=== PATIENT | male | born 1995 | race Two or more races ===

== ENCOUNTER 2018-01-01 21:25 | Inpatient (IN) ==
[2018-01-02] MEDS: Heparin Drip 25,000 UNIT/250 ML BAG IV.CONT PRN ×2 (00:15→13:40)
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
[2018-01-02] MEDS: Azithromycin 250 MG Tablet PO SCH (09:25)
--- NOTE | 2018-01-02 10:41 | US ---
EXAM DATE: 01/02/2018 10:33 AM EDT AGE/SEX: 22 years / Male INDICATIONS: Pulmonary embolism. CLINICAL DATA: This is the patient's initial encounter. Patient reports that signs and symptoms have been present for 1 day and indicates a pain score of 0/10. MEDICAL/SURGICAL HISTORY: . Pulmonary embolism. Pleural effusion. None. COMPARISON: No prior exams available for comparison. TECHNIQUE: Venous ultrasound of both lower extremities was performed from the inguinal ligament to t he proximal calf. Real-time, color Doppler and spectral tracing, compression and augmentation techni ques were used. FINDINGS: Right Leg: Normal compression of the deep venous system from the inguinal region to the proximal hardik f. No echogenic clot is seen. Normal response of the venous system to augmentation and respiration. Left Leg: Normal compression of the deep venous system from the inguinal region to the proximal calf . No echogenic clot is seen. Normal response of the venous system to augmentation and respiration. Other: None. CONCLUSION: 1. Negative for deep venous thrombosis Electronically signed by: Chon Holland MD 01/02/2018 10:40 AM EDT
[2018-01-02] MEDS: Acetaminophen 325 MG Tablet PO PRN (16:05)
[2018-01-02 17:44] LABS: Hemoglobin A1c 5.5 % (4.3-6.0)
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
--- NOTE | 2018-01-02 19:44 | ECHRPT ---
Indication: Effusion CONCLUSIONS The left ventricular systolic function is low normal with an estimated ejection fraction in the rang e of 50- 55%. No Regional Wall Motion Abnormality. The estimated pulmonary arterial pressure is 11 mmHg. BP: / HR: Rhythm: MEASUREMENTS (Male / Female) Normal Values Technical Quality:Fair 2D ECHO LV Diastolic Diameter PLAX 4.6 cm 4.2 - 5.9 / 3.9 - 5.3 cm LV Systolic Diameter PLAX 3.6 cm IVS Diastolic Thickness 1.1 cm 0.6 - 1.0 / 0.6 - 0.9 cm LVPW Diastolic Thickness 1.1 cm 0.6 - 1.0 / 0.6 - 0.9 cm LV Relative Wall Thickness 0.5 RV Internal Dim ED PLAX 2.8 cm LVOT Diameter 2.3 cm Aortic Root Diameter 2.8 cm LA Systolic Diameter LX 3.1 cm 3.0 - 4.0 / 2.7 - 3.8 cm DOPPLER AV Peak Velocity 160.0 cm/s AV Peak Gradient 10.2 mmHg LVOT Peak Velocity 116.0 cm/s LVOT Peak Gradient 5.4 mmHg AV Area Cont Eq pk 3.0 cm Mitral E Point Velocity 72.6 cm/s Mitral A Point Velocity 81.4 cm/s Mitral E to A Ratio 0.9 LV E' Lateral Velocity 15.7 cm/s Mitral E to LV E' Lateral Ratio 4.6 LV E' Septal Velocity 6.8 cm/s Mitral E to LV E' Septal Ratio 10.6 TR Peak Velocity 122.0 cm/s TR Peak Gradient 6.0 mmHg Right Atrial Pressure 5.0 mmHg Pulmonary Artery Systolic Pressu 11.0 mmHg Right Ventricular Systolic Press 11.0 mmHg PV Peak Velocity 122.0 cm/s PV Peak Gradient 6.0 mmHg FINDINGS LEFT VENTRICLE Normal left ventricular size. Wall thickness is measured at the upper limits of normal. The left ventricular systolic function is low normal with an estimated ejection fraction in the rang e of 50- 55%. RIGHT VENTRICLE Normal right ventricular size and systolic function. LEFT ATRIUM The left atrial size is normal. RIGHT ATRIUM The right atrial size is normal. ATRIAL SEPTUM Normal atrial septal thickness without atrial level shunting by limited color doppler interrogation. AORTA The aortic root and proximal ascending aorta are normal in size on limited imaging. MITRAL VALVE Structurally normal mitral valve. No mitral valve stenosis or regurgitation. AORTIC VALVE Trileaflet aortic valve. No aortic valve stenosis or regurgitation. TRICUSPID VALVE There is trace tricuspid valve regurgitation. The estimated pulmonary arterial pressure is 11 mmHg. PULMONARY VALVE No pulmonary valve regurgitation or stenosis. VESSELS The inferior vena cava is normal in size. PERICARDIUM No pericardial effusion. Cesar Sarkar MD (Electronically Signed) Final Date:02 January 2018 19:43
[2018-01-02] MEDS: Piperacil/Tazo 4.5 GM Premix 4.5 GM/100 ML BAG IV.SIG SCH (20:04)
[2018-01-02] MEDS: Sodium Bicarbonate 8.4% Inj 75 MEQ in Sod Chloride 0.9% Inj 925 ML IV.CONT SCH (20:13)
[2018-01-02] MEDS: MethylPREDNISolone Sod Succinate Inj 40 MG/ML Vial IV.PUSH SCH (20:42)
--- NOTE | 2018-01-02 22:00 | MB ---
cc: Marie Carson MD DATE: 01/02/2018 REASON FOR CONSULTATION: Pneumonia, peribronchial thickening and possible pulmonary emboli. HISTORY OF PRESENT ILLNESS: This is a 22-year-old male with a history of pain along the right lower chest, cough and shortness of breath as well as trouble lying flat who was brought to the emergency room for evaluation. The patient states that he has been sick for about a week with sweating and some low-grade fevers as well as shortness of breath and chest tightness. Upon arrival in the ER, he had a CT angiogram done of the chest which showed evidence of small bilateral emboli and an ultrasound of the leg veins showed no evidence of DVT. The patient was started on IV heparin. The CTA also showed a consolidation and a small pleural effusion on the right side. He thus has been placed on IV antibiotics including Rocephin IV and Zithromax, which was switched to Zosyn today. The patient has no hemoptysis. He brings up very little mucus. He is not running any fevers this time, but still has pleuritic chest pain. He has no leg or calf muscle pains. PAST MEDICAL HISTORY: Includes a history for low back pain and shoulder pain due to which he has been disabled. He has had no surgery in the past. Denies previous pneumonia. FAMILY HISTORY: History of diabetes in his father. There is a history of heart disease and there is a history for deep venous thrombosis. HABITS: The patient smoked cigarettes, less than a pack, for the last 5 years. Alcohol use, none. Presently, he is disabled due to his back pain. ALLERGIES: NO DRUG ALLERGIES ARE LISTED. REVIEW OF SYSTEMS: The patient has no headaches, but he has some postnasal drip. He has wheezing and chest tightness and pain. He has epigastric distress and some nausea. He has no urinary symptoms. He denies skin lesions. He has some anxiety attacks. PHYSICAL EXAMINATION: GENERAL: This is an obese, young white male who is alert and mildly dyspneic. VITAL SIGNS: Blood pressure 140/80, pulse 100, respirations 24, temperature 97.6. HEENT: Head is normocephalic. Pupils are reactive and equal. Tongue is moist. Throat is mildly injected. Ears, no inflammation. NECK: No bruits, thyroid enlargement or lymphadenopathy. CHEST: Decreased breath sounds over the right lower chest with occasional wheezes bilaterally. HEART: Regular S1 and S2 with no murmur and no S3. ABDOMEN: Soft, obese without masses. No organomegaly or tenderness. Bowel sounds are active. EXTREMITIES: No calf tenderness. No lesions. NEUROLOGIC: Reflexes are 1+ with no gross motor deficits. Cranial nerves grossly intact. SKIN: No lesions observed. IMPRESSION: 1. Right basilar pneumonia with small pleural effusion. 2. Mediastinal and hilar lymphadenopathy, etiology undetermined. 3. Reactive airways disease. 4. Possible pulmonary embolism. CTA chest pending. 5. Possible obstructive sleep apnea. PLAN: The patient has been started on heparin, which we will continue. Antibiotic therapy including Zosyn is 4.5 grams IV q.8 hours and Zithromax 500 mg p.o. daily will be continued. Nebulized DuoNeb solution added q.i.d. A bedside pulmonary function study will be done and a repeat chest x-ray. The patient will be placed on O2 at 2 liters p.r.n. to keep saturations greater than 92. Solu-Medrol 40 mg IV b.i.d. will be added. An ultrasound examination of the chest to evaluate the effusion and a CBC and a CMP as well. I follow the case with you, Dr. Jefferson. Thank you for this consultation. V. Ryland Carson MD VJD/kerrie , 08:09 PM , 08:22 PM
--- NOTE | 2018-01-03 | CT ---
EXAM DATE: 01/02/2018 11:47 PM EDT AGE/SEX: 22 years / Male INDICATIONS: Suspected embolism. CLINICAL DATA: This is the patient's subsequent encounter. Patient reports that signs and symptoms h ave been present for 2 days and indicates a pain score of 3/10. MEDICAL/SURGICAL HISTORY: None. None. RADIATION DOSE: 21.84 CTDI (mGy) COMPARISON: [facility], CTA PULMONARY W CONTRAST W 3D, 01/01/2018. . TECHNIQUE: Volumetric scanning was performed using a multi-row detector CT scanner during bolus infu isrrael of 100 ml Omnipaque 350 (iohexol) nonionic water-soluble contrast as a single exam dose. The da ta was post processed with a variety of visualization algorithms including full volume maximum intens ity projection and sliding thin slab reformation. Using automated exposure control and adjustment of the mA and/or kV according to patient size, radiation dose was kept as low as reasonably achievable to obtain optimal diagnostic quality images. DICOM format image data is available electronically for review and comparison. FINDINGS: No perceptible pulmonary embolus at this time. Persistent right lower lobe consolidation and small ef fusion again noted. Mild left base atelectasis not significantly changed. Mildly enlarged right hilar and mediastinal/subcarinal lymph nodes are unchanged. Heart size stable, within normal limits. CONCLUSION: 1. No reproducible pulmonary emboli. 2. Persistent left lower lobe consolidation and small left pleural effusion. 3. Mild right base atelectasis not significantly changed. 4. Mildly enlarged mediastinal and right hilar lymph nodes not significantly changed. Electronically signed by: Brock Rossi MD 01/02/2018 11:59 PM EDT
[2018-01-03 01:24] LABS: Mono Screen Neg (Neg)
[2018-01-03] MEDS: Heparin Drip 25,000 UNIT/250 ML BAG IV.CONT PRN ×2 (02:53→14:20)
[2018-01-03] MEDS: Piperacil/Tazo 4.5 GM Premix 4.5 GM/100 ML BAG IV.SIG SCH ×3 (05:17→21:54)
[2018-01-03] MEDS: Sodium Bicarbonate 8.4% Inj 75 MEQ in Sod Chloride 0.9% Inj 925 ML IV.CONT SCH ×3 (05:18→21:43)
[2018-01-03 07:22] LABS: Baso % (Auto) 0.2 % (0.0-2.0); Eos % (Auto) 0.1 % (0.0-4.0); Hematocrit 37.1 % (39.0-51.0); Hemoglobin 12.5 gm/dL (13.0-17.0); Lymph # (Auto) 1.1 th/mm3 (1.0-4.8); Lymph % (Auto) 9.4 % (9.0-44.0); Mean Corpuscular HGB Conc 33.6 % (32.0-36.0); Mean Corpuscular Hemoglobin 28.4 pg (27.0-34.0); Mean Corpuscular Volume 84.3 fL (80.0-100.0); Mean Platelet Volume 8.6 fL (7.0-11.0); Mono # (Auto) 0.7 th/mm3 (0.0-0.9); Mono % (Auto) 6.1 % (0.0-8.0); Neut # (Auto) 9.7 th/mm3 (1.8-7.7); Neut % (Auto) 84.2 % (16.0-70.0); Platelet Count 325 th/mm3 (150-450); White Blood Count 11.5 th/mm3 (4.0-11.0)
[2018-01-03 07:31] LABS: Chloride 103 meq/L (98-107); Potassium 3.8 meq/L (3.5-5.1); Sodium 137 meq/L (136-145)
[2018-01-03 07:34] LABS: Calcium 8.4 mg/dL (8.5-10.1)
[2018-01-03 07:35] LABS: Albumin 2.8 g/dL (3.4-5.0); Anion Gap 6 meq/L (5-15); Blood Urea Nitrogen 8 mg/dL (7-18); Carbon Dioxide 27.7 meq/L (21.0-32.0); Glucose,Random 143 mg/dL (74-106)
[2018-01-03 07:38] LABS: Alanine Aminotransferase 46 U/L (12-78); Aspartate Aminotransferase 17 U/L (15-37); Glomerular Filtration Rate Greater Than 89 mL/min (>89)
[2018-01-03 07:40] LABS: Total Protein 7.6 g/dL (6.4-8.2)
[2018-01-03 07:41] LABS: Alkaline Phosphatase 101 U/L (45-117)
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
[2018-01-03] MEDS: Azithromycin 250 MG Tablet PO SCH (08:46)
[2018-01-03] MEDS: MethylPREDNISolone Sod Succinate Inj 40 MG/ML Vial IV.PUSH SCH ×2 (08:47→21:54)
--- NOTE | 2018-01-03 08:48 | XR ---
EXAM DATE: 01/03/2018 8:39 AM EDT AGE/SEX: 22 years / Male INDICATIONS: Infiltrate, short of breath. CLINICAL DATA: This is the patient's subsequent encounter. Patient reports that signs and symptoms h ave been present for 3 days and indicates a pain score of 3/10. MEDICAL/SURGICAL HISTORY: None. None. COMPARISON: [facility], CHEST 1V SINGLE AP, 01/01/2018. . FINDINGS: A single AP view of the chest demonstrates right basilar density and pleural effusion. Heart normal i n size. Minimal left basilar atelectasis. The cardiomediastinal contours are unremarkable. Osseous s tructures are intact. CONCLUSION: Moderate right-sided pleural effusion and right basilar density likely pneumonia. Electronically signed by: Horace Bettencourt MD 01/03/2018 8:47 AM EDT
[2018-01-03 12:02] LABS: INR 1.1 Ratio; Prothrombin Time 10.9 sec (9.8-11.6)
--- NOTE | 2018-01-03 19:16 | P.PNONC ---
Subjective Interval history: "I feel better this morning after everything they did yesterday" Still has pain in the right side. Denies any bleeding. Objective Vital Signs/Intake & Output: Vital Signs 01/02/18 19:30 01/02/18 20:00 01/02/18 20:18 Temperature 99.3 F Pulse Rate 116 H 122 H 120 H Respiratory Rate 16 18 Blood Pressure 139/88 Pulse Oximetry 93 L 94 L 01/02/18 20:37 01/02/18 20:38 01/03/18 00:00 Temperature 99.3 F 97.5 F L Pulse Rate 122 H 104 H Respiratory Rate 20 18 Blood Pressure 134/68 131/63 Pulse Oximetry 94 L 94 L 93 L 01/03/18 00:15 01/03/18 04:00 01/03/18 05:53 Temperature 96.5 F L Pulse Rate 111 H 93 H 76 Respiratory Rate 18 Blood Pressure 122/69 Pulse Oximetry 94 L 01/03/18 07:32 01/03/18 08:00 01/03/18 12:00 Temperature 97.5 F L 97.7 F Pulse Rate 87 102 H 103 H Respiratory Rate 16 Blood Pressure 140/71 132/72 Pulse Oximetry 92 L 01/03/18 14:57 01/03/18 16:00 01/03/18 17:10 Temperature 97.8 F Pulse Rate 100 H 113 H 119 H Respiratory Rate 18 18 Blood Pressure 138/60 Pulse Oximetry 92 L Intake & Output 01/03/18 01/03/18 01/04/18 06:59 18:59 06:59 Intake Total 1350 / 1350 2415 / 2415 Output Total 1600 / 1600 Balance -250 / -250 2415 / 2415 Weight 125.7 kg Intake: IV 1350 / 1350 1415 / 1415 Heparin/D5W 25,000 U/250 mL 25, 250 / 250 215 / 215 000 unit In 250 ml @ Per Protocol IV.CONT TITRATE PRN Rx #:[id number] Sodium Bicarbonate 8.4% Inj 75 1000 / 1000 1000 / 1000 MEQ In NS Inj 925 ML @ 125 mls/ hr IV.CONT .Q8H KATI Rx#: [id number] Zosyn 4.5 GM Premix 4.5 gm In 100 / 100 200 / 200 100 ml @ 200 mls/hr IV.SIG Q8H KATI Rx#:[id number] Oral 1000 / 1000 Output: Urine 1600 / 1600 Other: # Voids 4 Date of Last Bowel Movement 12/31/17 Result Diagrams: 01/03/18 07:00 01/03/18 07:00 Laboratory Results: Laboratory Results - last 24 hr 01/02/18 01/02/18 01/03/18 05:15 20:00 00:30 CBC w Diff WBC RBC Hgb Hct MCV MCH MCHC RDW Plt Count MPV Neut % (Auto) Lymph % (Auto) [place] % (Auto) Eos % (Auto) Baso % (Auto) Neut # (Auto) Lymph # (Auto) [place] # (Auto) Eos # (Auto) Baso # (Auto) WBC Differential Differential Comment PT INR APTT 37.8 H Sodium Potassium Chloride Carbon Dioxide Anion Gap BUN Creatinine Estimated GFR Random Glucose Hemoglobin A1c 5.5 Calcium Total Bilirubin AST ALT Alkaline Phosphatase Total Protein Albumin Monoscreen Neg 01/03/18 01/03/18 01/03/18 07:00 07:00 07:00 CBC w Diff Auto diff final WBC 11.5 H RBC 4.40 L Hgb 12.5 L Hct 37.1 L MCV 84.3 MCH 28.4 MCHC 33.6 RDW 13.0 Plt Count 325 MPV 8.6 Neut % (Auto) 84.2 H Lymph % (Auto) 9.4 [place] % (Auto) 6.1 Eos % (Auto) 0.1 Baso % (Auto) 0.2 Neut # (Auto) 9.7 H Lymph # (Auto) 1.1 [place] # (Auto) 0.7 Eos # (Auto) 0.0 Baso # (Auto) 0.0 WBC Differential . Differential Comment . PT INR APTT 37.8 H Sodium 137 Potassium 3.8 Chloride 103 Carbon Dioxide 27.7 Anion Gap 6 BUN 8 Creatinine 0.85 Estimated GFR Greater than 89 Random Glucose 143 H Hemoglobin A1c Calcium 8.4 L Total Bilirubin 0.5 AST 17 ALT 46 Alkaline Phosphatase 101 Total Protein 7.6 Albumin 2.8 L D Monoscreen 01/03/18 01/03/18 07:10 16:40 CBC w Diff WBC RBC Hgb Hct MCV MCH MCHC RDW Plt Count MPV Neut % (Auto) Lymph % (Auto) [place] % (Auto) Eos % (Auto) Baso % (Auto) Neut # (Auto) Lymph # (Auto) [place] # (Auto) Eos # (Auto) Baso # (Auto) WBC Differential Differential Comment PT 10.9 INR 1.1 APTT 36.9 H Sodium Potassium Chloride Carbon Dioxide Anion Gap BUN Creatinine Estimated GFR Random Glucose Hemoglobin A1c Calcium Total Bilirubin AST ALT Alkaline Phosphatase Total Protein Albumin Monoscreen Imaging Studies: Impressions Chest CTA 01/02/18 00:00 CONCLUSION: 1. No reproducible pulmonary emboli. 2. Persistent left lower lobe consolidation and small left pleural effusion. 3. Mild right base atelectasis not significantly changed. 4. Mildly enlarged mediastinal and right hilar lymph nodes not significantly changed. Chest X-Ray 01/03/18 00:00 CONCLUSION: Moderate right-sided pleural effusion and right basilar density likely pneumonia. Medications: Active Medications Generic Name Dose Route Start Last Admin Trade Name Freq PRN Reason Stop Dose Admin Acetaminophen 650 mg 01/02/18 03:23 01/02/18 16:05 Tylenol PO 650 mg Q4H PRN Administration Temp > 100.4 Hydrocodone Bitart/Acetaminophen 1 tab 01/02/18 03:26 01/02/18 20:34 [place] 5/325 PO 1 tab Q4H PRN Administration pain 1 to 10 Albuterol 1 ampul 01/02/18 09:05 01/02/18 09:20 Duoneb Neb (Prn) NEB 1 ampul Q2HR NEB PRN Administration SHORTNESS OF BREATH/WHEEZING Albuterol 1 ampul 01/02/18 14:00 01/03/18 14:57 Duoneb Neb (Kati) NEB 1 ampul Q6HR WHILE AWAKE NEB KATI Administration Azithromycin 500 mg 01/02/18 10:00 01/03/18 08:46 Zithromax PO 500 mg DAILY KATI Administration Heparin Sodium/Dextrose 25,000 unit in 250 mls @ 0 mls/hr 01/02/18 03:27 14:20 Heparin/D5w 25,000 U/250 Ml IV.CONT 2,100 units/hr TITRATE PRN 21 mls/hr Per Protocol Administration Protocol Per Protocol Piperacillin/Tazobactam/Dextrose 4.5 gm in 100 mls @ 200 mls/hr 01/02/18 20: 00 01/03/18 13:10 Zosyn 4.5 Gm Premix IV.SIG Infused Q8H KATI Infusion Sodium Bicarbonate 75 meq/ 1,000 mls @ 125 mls/hr 01/02/18 20:00 01/03/18 12: 38 Sodium Chloride IV.CONT 125 mls/hr .Q8H KATI Administration Methylprednisolone Sodium Succinate 40 mg 01/02/18 21:00 01/03/18 08:47 Solumedrol Inj IV.PUSH 40 mg Q12HR KATI Administration Objective Remarks: GENERAL: Well-nourished, heavyset, well-developed patient. SKIN: Warm and dry. HEAD: Normocephalic. EYES: No scleral icterus. No injection or drainage. NECK: Supple, trachea midline. No JVD or lymphadenopathy. LYMPHATIC: No adenopathy. CARDIOVASCULAR: Regular rate and rhythm without murmurs. RESPIRATORY: Decreased breath sounds in the right base. GASTROINTESTINAL: Abdomen soft, non-tender, nondistended. EXTREMITIES: No cyanosis, or edema. MUSCULOSKELETAL: Adequate muscle tone. NEUROLOGICAL: No obvious focal deficit. Awake, alert, and oriented x3. PSYCHIATRIC: Appropriate mood and affect; insight and judgment normal. Assessment/Plan (1) Pulmonary embolism Code(s): I26.99 - Other pulmonary embolism without acute cor pulmonale Status : Acute - Plan 22-year-old man on disability with chronic pains. He came home from a wedding 2 weeks ago and developed illness that kept him in bed, quite sedentary from the illness. He developed pleuritic-like chest pain which is worsened over the last 2 days that brought him into the emergency room and [place]. CT angiogram from 01/01/18 shows bilateral small pulmonary emboli. Review with the radiology confirmed the presence of the bilateral small pulmonary emboli. Noted that the CT angiogram repeat on 01/01/18 was negative which unfortunately does not negate the presence of the pulmonary embolism found from the CT angiogram 01/01/18. His clinical presentation is consistent with pulmonary embolism. Clinically he improved with a combination therapy of antibiotics and anticoagulant. He has significant family history of venous and arterial thrombotic event. His mother apparently is on Coumadin with an idiopathic clot to the liver. His father has recurrent arterial embolic event and has multiple stents placed. He has maternal history significant for other uncles with thrombotic events and on chronic anticoagulant therapy. The patient has no prior history of venous thromboembolic event. Bilateral pulmonary embolism provoked. Recommend continued anticoagulant therapy with unfractionated heparin during his hospitalization. Unfractionated heparin will be stopped prior to his thoracentesis for the empyema. We discussed continued anticoagulant therapy as definitive treatment for his bilateral pulmonary embolism with the new oral anticoagulant when he is ready to go home. infrastructure project manager will be consulted for Eliquis or Xarelto to continue after discharge. He is young, normal renal function, with no prior history of bleeding diathesis. We discussed thrombophilia evaluation. We will defer that at present as it is unlikely to change clinical management. We discussed the risk and benefit of anticoagulant therapy with patient and his mother at bedside. They were in agreement with continue anticoagulation in light of his significant family history and his acute symptoms which got better with unfractionated heparin last 24 hours. We will monitor closely for bleeding. Case was discussed with nursing program director. (1) Pulmonary embolism Qualifiers: Chronicity: acute Acute cor pulmonale presence: without acute cor pulmonale
--- NOTE | 2018-01-03 19:36 | P.PN ---
Subjective Interval history: Has some Right chest pains. On Heparin due to PE Now has a Larger Right effusion Physical Exam Vital signs: Vital Signs 01/02/18 20:00 01/02/18 20:18 01/02/18 20:37 Temperature 99.3 F 99.3 F Pulse Rate 122 H 120 H 122 H Respiratory Rate 18 20 Blood Pressure 139/88 134/68 Pulse Oximetry 94 L 94 L 01/02/18 20:38 01/03/18 00:00 01/03/18 00:15 Temperature 97.5 F L Pulse Rate 104 H 111 H Respiratory Rate 18 Blood Pressure 131/63 Pulse Oximetry 94 L 93 L 01/03/18 04:00 01/03/18 05:53 01/03/18 07:32 Temperature 96.5 F L Pulse Rate 93 H 76 87 Respiratory Rate 18 16 Blood Pressure 122/69 Pulse Oximetry 94 L 92 L 01/03/18 08:00 01/03/18 12:00 01/03/18 14:57 Temperature 97.5 F L 97.7 F Pulse Rate 102 H 103 H 100 H Respiratory Rate 18 Blood Pressure 140/71 132/72 Pulse Oximetry 01/03/18 16:00 01/03/18 17:10 Temperature 97.8 F Pulse Rate 113 H 119 H Respiratory Rate 18 Blood Pressure 138/60 Pulse Oximetry 92 L Intake & Output 01/03/18 01/03/18 01/04/18 06:59 18:59 06:59 Intake Total 1350 / 1350 2415 / 2415 82 / 82 Output Total 1600 / 1600 Balance -250 / -250 2415 / 2415 82 / 82 Weight 125.7 kg Intake: IV 1350 / 1350 1415 / 1415 82 / 82 Heparin/D5W 25,000 U/250 mL 25, 250 / 250 215 / 215 82 / 82 000 unit In 250 ml @ Per Protocol IV.CONT TITRATE PRN Rx #:[id number] Sodium Bicarbonate 8.4% Inj 75 1000 / 1000 1000 / 1000 MEQ In NS Inj 925 ML @ 125 mls/ hr IV.CONT .Q8H GLENDA Rx#: [id number] Zosyn 4.5 GM Premix 4.5 gm In 100 / 100 200 / 200 100 ml @ 200 mls/hr IV.SIG Q8H GLENDA Rx#:[id number] Oral 1000 / 1000 Output: Urine 1600 / 1600 Other: # Voids 4 Date of Last Bowel Movement 12/31/17 Narrative: GENERAL: Well-developed, well-nourished, heavy set male patient lying in bed in no acute distress. alert and orientated. No shortness of breath. On 2 L nasal cannula. HEENT: Head is normocephalic without any lesions or masses noted. Facial features are symmetric. Eyes: Pupils equal round reactive to light. Extraocular muscles are intact. Conjunctivae were clear. Oropharyngeal: Pharynx without any erythema edema. Tongue is midline without deviation. Buccal mucosa is moist without any masses or lesions NECK: Supple without any masses. Trachea midline no deviation. No JVD, no bruits are appreciated CARDIAC: Regular rhythm, regular rate. S1/S2 are heard. No murmurs gallops or rubs. LUNGS: No wheeze, rhonchi or rales.Decreased breath sounds at right base. No use of accessory muscles on inspiration or expiration. ABDOMEN: Soft, nontender. Nondistended. Bowel sounds heard in all 4 quadrants. No organomegaly or masses. Negative rebound, negative guarding EXTREMITIES: No edema, pulses are equal bilaterally. No cyanosis or clubbing NEUROLOGY: Mood and affect appear appropriate. Cranial nerves II through XII grossly intact. Muscle strength 5/5 in upper and lower extremities bilaterally. Results - Labs CBC & Chem 7: 01/03/18 07:00 01/03/18 07:00 Laboratory Results - last 24 hr 01/02/18 01/03/18 01/03/18 20:00 00:30 07:00 CBC w Diff Auto diff final WBC 11.5 H RBC 4.40 L Hgb 12.5 L Hct 37.1 L MCV 84.3 MCH 28.4 MCHC 33.6 RDW 13.0 Plt Count 325 MPV 8.6 Neut % (Auto) 84.2 H Lymph % (Auto) 9.4 [place] % (Auto) 6.1 Eos % (Auto) 0.1 Baso % (Auto) 0.2 Neut # (Auto) 9.7 H Lymph # (Auto) 1.1 [place] # (Auto) 0.7 Eos # (Auto) 0.0 Baso # (Auto) 0.0 WBC Differential . Differential Comment . PT INR APTT 37.8 H Sodium Potassium Chloride Carbon Dioxide Anion Gap BUN Creatinine Estimated GFR Random Glucose Calcium Total Bilirubin AST ALT Alkaline Phosphatase Total Protein Albumin Monoscreen Neg 01/03/18 01/03/18 01/03/18 07:00 07:00 07:10 CBC w Diff WBC RBC Hgb Hct MCV MCH MCHC RDW Plt Count MPV Neut % (Auto) Lymph % (Auto) [place] % (Auto) Eos % (Auto) Baso % (Auto) Neut # (Auto) Lymph # (Auto) [place] # (Auto) Eos # (Auto) Baso # (Auto) WBC Differential Differential Comment PT 10.9 INR 1.1 APTT 37.8 H Sodium 137 Potassium 3.8 Chloride 103 Carbon Dioxide 27.7 Anion Gap 6 BUN 8 Creatinine 0.85 Estimated GFR Greater than 89 Random Glucose 143 H Calcium 8.4 L Total Bilirubin 0.5 AST 17 ALT 46 Alkaline Phosphatase 101 Total Protein 7.6 Albumin 2.8 L D Monoscreen 01/03/18 16:40 CBC w Diff WBC RBC Hgb Hct MCV MCH MCHC RDW Plt Count MPV Neut % (Auto) Lymph % (Auto) [place] % (Auto) Eos % (Auto) Baso % (Auto) Neut # (Auto) Lymph # (Auto) [place] # (Auto) Eos # (Auto) Baso # (Auto) WBC Differential Differential Comment PT INR APTT 36.9 H Sodium Potassium Chloride Carbon Dioxide Anion Gap BUN Creatinine Estimated GFR Random Glucose Calcium Total Bilirubin AST ALT Alkaline Phosphatase Total Protein Albumin Monoscreen - Imaging Impressions Chest CTA 01/02/18 00:00 CONCLUSION: 1. No reproducible pulmonary emboli. 2. Persistent left lower lobe consolidation and small left pleural effusion. 3. Mild right base atelectasis not significantly changed. 4. Mildly enlarged mediastinal and right hilar lymph nodes not significantly changed. Chest X-Ray 01/03/18 00:00 CONCLUSION: Moderate right-sided pleural effusion and right basilar density likely pneumonia. Assessment and Plan - Assessment (1) Pneumonia Code(s): J18.9 - Pneumonia, unspecified organism Status: Acute (2) Pleural effusion associated with pulmonary infection Code(s): J18.9 - Pneumonia, unspecified organism; J91.8 - Pleural effusion in other conditions classified elsewhere Status: Acute (3) Atelectasis Code(s): J98.11 - Atelectasis Status: Acute (4) Pulmonary embolism Code(s): I26.99 - Other pulmonary embolism without acute cor pulmonale Status : Acute - Plan 1. Continue Antibiotics Zosyn/ Zithromax 2. O2 2 L N/C 3. Thoracentesis right chest and Chest tube to Drain 4. Nebs qid , duoneb 5. PFT with Bronchodilator 6. IS at Bedside Q2H 7. CBC,BMP CXR in am 8. Continue heparin drip per heme (4) Pulmonary embolism Qualifiers: Chronicity: acute Acute cor pulmonale presence: without acute cor pulmonale
[2018-01-04] MEDS: Heparin Drip 25,000 UNIT/250 ML BAG IV.CONT PRN (02:04)
[2018-01-04] MEDS: Sodium Bicarbonate 8.4% Inj 75 MEQ in Sod Chloride 0.9% Inj 925 ML IV.CONT SCH ×3 (05:39→22:08)
[2018-01-04] MEDS: Piperacil/Tazo 4.5 GM Premix 4.5 GM/100 ML BAG IV.SIG SCH ×3 (05:46→21:30)
[2018-01-04] MEDS: Azithromycin 250 MG Tablet PO SCH (08:01)
[2018-01-04] MEDS: MethylPREDNISolone Sod Succinate Inj 40 MG/ML Vial IV.PUSH SCH ×2 (08:01→20:16)
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
[2018-01-04] MEDS ORDERED: fentaNYL Citrate Inj 100 MCG/2 ML Ampul IV.PUSH ONE (14:20)
--- NOTE | 2018-01-04 14:37 | P.RAD ---
Post Procedure Progress Note - Pre Procedure Diagnosis (1) Pleural effusion associated with pulmonary infection - Post Procedure Diagnosis (1) Pleural effusion associated with pulmonary infection - Procedure Information Procedure Date: 01/04/18 Supervising Radiologist: Serafin Holland MD Estimated blood loss (mL): 0 - Plan of Activity Patient to Unit: PACU Patient Condition: Good Additional Comments: Patient evaluated prior to chest tube placement. The right pleural effusion has nearly completely resolved. Much improved compared to prior CT. No chest tube placed due to lack of sufficient fluid. Continued pulmonary infiltrate and atelectasis. Full report to follow. See PACS Report for procedural detail/treatment.
--- NOTE | 2018-01-04 14:46 | CT ---
EXAM DATE: 01/04/2018 2:40 PM EDT AGE/SEX: 22 years / Male INDICATIONS: Right chest fluid collection. COMPARISON: [facility], CTA PULMONARY W CONTRAST W 3D, 01/02/2018. . FINDINGS: The patient arrived for placement of a chest tube for drainage of empyema. The patient was placed on the CT scanner prior to chest tube placement. The examination demonstrated significant interval improvement in the appearance of the effusion with very minimal residual fluid r emaining. There is extensive atelectatic change and infiltrate within the right lung. CONCLUSION: 1. The patient's effusion has significantly improved compared to the prior study of 01/02/2018. Ther e is now only a small amount of fluid which remains. As such, no chest tube was placed. 2. There is still extensive consolidation and atelectasis within the right lung. Electronically signed by: Serafin Holland MD 01/04/2018 2:45 PM EDT
[2018-01-04 16:19] LABS: Hematocrit 37.3 % (39.0-51.0); Hemoglobin 12.4 gm/dL (13.0-17.0); Mean Corpuscular HGB Conc 33.4 % (32.0-36.0); Mean Corpuscular Hemoglobin 29.1 pg (27.0-34.0); Mean Platelet Volume 8.3 fL (7.0-11.0); Platelet Count 371 th/mm3 (150-450); Red Blood Count 4.29 mil/mm3 (4.50-5.90); Red Cell Distribution Width 13.6 % (11.6-17.2); White Blood Count 14.5 th/mm3 (4.0-11.0)
--- NOTE | 2018-01-04 18:36 | P.PN ---
Subjective Interval history: States he is better.Less pain in chest On O2 2 L. No Fever. Pleural effusion has resolved. Physical Exam Vital signs: Vital Signs 01/03/18 19:22 01/03/18 20:00 01/03/18 20:30 Temperature 97.1 F L 97.1 F L Pulse Rate 109 H 118 H 118 H Respiratory Rate 16 20 18 Blood Pressure 129/60 129/60 Pulse Oximetry 92 L 91 L 92 L 01/04/18 00:00 01/04/18 04:00 01/04/18 04:48 Temperature 97.8 F 96.1 F L Pulse Rate 104 H 102 H 98 H Respiratory Rate 20 20 Blood Pressure 127/67 124/68 Pulse Oximetry 94 L 95 01/04/18 07:13 01/04/18 08:00 01/04/18 12:00 Temperature 96.8 F L 96.8 F L Pulse Rate 70 70 66 Respiratory Rate 16 21 18 Blood Pressure 129/74 132/75 Pulse Oximetry 96 98 97 01/04/18 14:40 01/04/18 14:55 01/04/18 15:10 Temperature 97.9 F 97.9 F 97.9 F Pulse Rate 81 80 66 Respiratory Rate 15 16 16 Blood Pressure 123/81 126/78 122/68 Pulse Oximetry 92 L 94 L 95 01/04/18 16:00 Temperature 96.9 F L Pulse Rate 73 Respiratory Rate 18 Blood Pressure 119/69 Pulse Oximetry 96 Intake & Output 01/03/18 01/04/18 01/04/18 18:59 06:59 18:59 Intake Total 2415 / 2415 2532 / 2532 1050 / 1050 Balance 2415 / 2415 2532 / 2532 1050 / 1050 Weight 127.8 kg Intake: IV 1415 / 1415 2532 / 2532 1050 / 1050 Heparin/D5W 25,000 U/250 mL 25, 215 / 215 332 / 332 000 unit In 250 ml @ Per Protocol IV.CONT TITRATE PRN Rx #:[id number] Sodium Bicarbonate 8.4% Inj 75 1000 / 1000 2000 / 2000 950 / 950 MEQ In NS Inj 925 ML @ 125 mls/ hr IV.CONT .Q8H GLENDA Rx#: [id number] Zosyn 4.5 GM Premix 4.5 gm In 200 / 200 200 / 200 100 / 100 100 ml @ 200 mls/hr IV.SIG Q8H GLENDA Rx#:[id number] Oral 1000 / 1000 Other: # Voids 4 1 Date of Last Bowel Movement 01/04/18 01/04/18 # Bowel Movements 1 Narrative: GENERAL: Well-developed, well-nourished, heavy set male patient lying in bed in no acute distress. alert and orientated. HEENT: Head is normocephalic without any lesions or masses noted. Facial features are symmetric. Eyes: Pupils equal round reactive to light. Extraocular muscles are intact. Conjunctivae were clear. Oropharyngeal: Pharynx without any erythema edema. Tongue is midline without deviation. Buccal mucosa is moist without any masses or lesions NECK: Supple without any masses. Trachea midline no deviation. No JVD, no bruits are appreciated CARDIAC: Regular rhythm, regular rate. S1/S2 are heard. No murmurs gallops or rubs. LUNGS: .Decreased breath sounds at right base. No use of accessory muscles on inspiration or expiration. ABDOMEN: Soft, nontender. Nondistended. Bowel sounds heard in all 4 quadrants. No organomegaly or masses. Negative rebound, negative guarding EXTREMITIES: No edema, pulses are equal bilaterally. No cyanosis or clubbing NEUROLOGY: Mood and affect appear appropriate. Cranial nerves II through XII grossly intact. Muscle strength 5/5 in upper and lower extremities bilaterally. Results - Labs CBC & Chem 7: 01/04/18 15:58 01/03/18 07:00 Laboratory Results - last 24 hr 01/04/18 01/04/18 01/04/18 00:05 15:58 15:58 WBC 14.5 H RBC 4.29 L Hgb 12.4 L Hct 37.3 L MCV 87.0 MCH 29.1 MCHC 33.4 RDW 13.6 Plt Count 371 MPV 8.3 APTT 34.8 H 25.9 D Microbiology 01/04/18 02:45 Sputum - Oral Tracheal Aspirate Gram Stain - Final 01/04/18 02:45 Stool Stool Occult Blood (BRANDY) - Final Hemoccult negative - Imaging Impressions CT Consultation 01/04/18 00:00 CONCLUSION: 1. The patient's effusion has significantly improved compared to the prior study of 01/02/2018. There is now only a small amount of fluid which remains. As such, no chest tube was placed. 2. There is still extensive consolidation and atelectasis within the right lung. Assessment and Plan - Assessment (1) Pneumonia Code(s): J18.9 - Pneumonia, unspecified organism Status: Acute (2) Pleural effusion associated with pulmonary infection Code(s): J18.9 - Pneumonia, unspecified organism; J91.8 - Pleural effusion in other conditions classified elsewhere Status: Acute (3) Atelectasis Code(s): J98.11 - Atelectasis Status: Acute (4) Pulmonary embolism Code(s): I26.99 - Other pulmonary embolism without acute cor pulmonale Status : Acute - Plan 1. Continue Antibiotics Zosyn/ Zithromax 2. O2 2 L N/C 3. Solumedrol 40 mg IV BID X 3 days 4. Nebs qid , duoneb 5. Add mucomyst 2 CC , 20 % solution nebs qid. 6. IS at Bedside Q2H 7. CBC,BMP CXR in am 8. Continue heparin drip per heme 9. Will consider bronchoscopy if next CXR shows no resolution of pneumonia (4) Pulmonary embolism Qualifiers: Chronicity: acute Acute cor pulmonale presence: without acute cor pulmonale
[2018-01-04] MEDS: Morphine Inj 4 MG/ML Vial IV.PUSH PRN (18:59)
--- NOTE | 2018-01-04 19:46 | XR ---
EXAM DATE: 01/04/2018 7:38 PM EDT AGE/SEX: 22 years / Male INDICATIONS: Short of breath. CLINICAL DATA: This is the patient's subsequent encounter. Patient reports that signs and symptoms h ave been present for 4 - 6 days and indicates a pain score of 0/10. MEDICAL/SURGICAL HISTORY: None. None. COMPARISON: [facility], CHEST 1V SINGLE AP, 01/03/2018. . FINDINGS: A single AP view of the chest demonstrates improvement in right pleural effusion and basilar airspace disease with minimal left basilar atelectasis. CONCLUSION: Improved right-sided pleural effusion and basilar airspace last day. Electronically signed by: Jaime Sorensen MD 01/04/2018 7:44 PM EDT
[2018-01-04 20:23] LABS: ABG Base Excess 2.7 mmol/L (-2-2); ABG PCO2 42 mmHg (38-42); ABG PO2 54 mmHg (61-120)
[2018-01-04] MEDS ORDERED: Vancomycin Inj 1,500 MG in Sodium Chlor 0.9% Inj 500 ML IV.SIG ONE (21:41)
[2018-01-04] MEDS ORDERED: Vancomycin Consult Pharmacy OTHER PRN (21:41)
[2018-01-04] MEDS ORDERED: Vancomycin Inj 2,000 MG in Sodium Chlor 0.9% Inj 500 ML IV.SIG ONE (22:00)
[2018-01-04] MEDS ORDERED: Vancomycin Inj 1,500 MG in Sodium Chlor 0.9% Inj 500 ML IV.SIG SCH (22:00)
[2018-01-04 23:52] LABS: Homocysteine (Cardiovascular) 5.1 umol/L (<11.4)
[2018-01-05] MEDS: Heparin Drip 25,000 UNIT/250 ML BAG IV.CONT PRN ×3 (01:02→19:38)
[2018-01-05] MEDS: Morphine Inj 4 MG/ML Vial IV.PUSH PRN (03:11)
[2018-01-05] MEDS: Piperacil/Tazo 4.5 GM Premix 4.5 GM/100 ML BAG IV.SIG SCH ×3 (03:12→19:31)
[2018-01-05 03:51] LABS: Activated Protein C Resistance 4.3 ratio (> OR = 2.1)
[2018-01-05] MEDS: Sodium Bicarbonate 8.4% Inj 75 MEQ in Sod Chloride 0.9% Inj 925 ML IV.CONT SCH (05:15)
[2018-01-05 06:29] LABS: Glomerular Filtration Rate Greater Than 89 mL/min (>89)
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
[2018-01-05] MEDS: MethylPREDNISolone Sod Succinate Inj 40 MG/ML Vial IV.PUSH SCH ×2 (09:46→20:05)
[2018-01-05] MEDS: Azithromycin 250 MG Tablet PO SCH (09:46)
[2018-01-05] MEDS: Vancomycin Inj 1,500 MG in Sodium Chlor 0.9% Inj 500 ML IV.SIG SCH ×2 (11:18→22:21)
--- NOTE | 2018-01-05 17:39 | P.PN ---
Subjective Interval history: He is better. No chest pain now . Chest Xray has improved. No fever Had reaction to mucomyst. Physical Exam Vital signs: Vital Signs 01/04/18 19:04 01/04/18 19:12 01/04/18 19:13 Temperature 98.7 F Pulse Rate 106 H 103 H Respiratory Rate 23 16 19 Blood Pressure 133/79 Pulse Oximetry 93 L 01/04/18 20:00 01/05/18 00:00 01/05/18 04:00 Temperature 98.4 F 99.4 F 98.1 F Pulse Rate 101 H 99 H 86 Respiratory Rate 20 20 20 Blood Pressure 138/77 128/65 122/67 Pulse Oximetry 91 L 91 L 96 01/05/18 07:25 01/05/18 08:00 01/05/18 12:00 Temperature 98.0 F 98.3 F Pulse Rate 95 H 93 H 92 H Respiratory Rate 18 18 19 Blood Pressure 127/66 125/64 Pulse Oximetry 95 95 95 01/05/18 14:19 01/05/18 16:00 Temperature 98.0 F Pulse Rate 100 H 90 Respiratory Rate 18 19 Blood Pressure 122/62 Pulse Oximetry 95 Intake & Output 01/04/18 01/05/18 01/05/18 18:59 06:59 18:59 Intake Total 1050 / 1050 2930 / 2930 1115 / 1115 Output Total 740 / 740 Balance 1050 / 1050 2190 / 2190 1115 / 1115 Weight 128.4 kg Intake: IV 1050 / 1050 2570 / 2570 1115 / 1115 Heparin/D5W 25,000 U/250 mL 25, 250 / 250 250 / 250 000 unit In 250 ml @ Per Protocol IV.CONT TITRATE PRN Rx #:[id number] Sodium Bicarbonate 8.4% Inj 75 950 / 950 1600 / 1600 250 / 250 MEQ In NS Inj 925 ML @ 125 mls/ hr IV.CONT .Q8H [facility] Rx#: [id number] Zosyn 4.5 GM Premix 4.5 gm In 100 / 100 200 / 200 100 / 100 100 ml @ 200 mls/hr IV.SIG Q8H [facility] Rx#:[id number] Vancomycin Inj 1,500 MG In NS 520 / 520 515 / 515 Inj 500 ML @ 250 mls/hr IV.SIG Q12H [facility] Rx#:[id number] Oral 360 / 360 Output: Urine 740 / 740 Other: # Voids 1 Date of Last Bowel Movement 01/04/18 01/04/18 Narrative: GENERAL: Well-developed, well-nourished, heavy set male patient lying in bed in no acute distress. alert and orientated. HEENT: Head is normocephalic without any lesions or masses noted. Facial features are symmetric. Eyes: Pupils equal round reactive to light. Extraocular muscles are intact. Conjunctivae were clear. Oropharyngeal: Pharynx without any erythema edema. Tongue is midline without deviation. Buccal mucosa is moist without any masses or lesions NECK: Supple without any masses. Trachea midline no deviation. No JVD, no bruits are appreciated CARDIAC: Regular rhythm, regular rate. S1/S2 are heard. No murmurs gallops or rubs. LUNGS: Decreased breath sounds right base. No use of accessory muscles on inspiration or expiration. ABDOMEN: Soft, nontender. Nondistended. Bowel sounds heard in all 4 quadrants. No organomegaly or masses. Negative rebound, negative guarding EXTREMITIES: No edema, pulses are equal bilaterally. No cyanosis or clubbing NEUROLOGY: Mood and affect appear appropriate. Cranial nerves II through XII grossly intact.Reflexes 1 +. Results - Labs CBC & Chem 7: 01/04/18 15:58 01/05/18 05:20 Laboratory Results - last 24 hr 01/02/18 01/02/18 01/04/18 10:00 10:00 20:05 APTT APC Resistance 4.3 Antithrombin III Activ 85 Factor VIII Activity 189 H Puncture Site Right radial Patient Temperature 98.6 O2 Saturation 85 L* ABG pH 7.42 ABG pCO2 42 ABG pO2 54 L* ABG HCO3 27 H ABG O2 Content 15.5 ABG Base Excess 2.7 H ABG Methemoglobin 1.5 Tristan Test Present Hemoglobin 13.1 Carboxyhemoglobin 1.2 O2 Delivery Device Nasal cannula Liter Flow 2.00 Inspired O2 28 Critical Value Yes Creatinine Estimated GFR Homocysteine Cardiovas 5.1 Beta-2-GPI IgG Ab <9 Beta-2-GPI IgA Ab <9 Beta-2-GPI IgM Ab <9 01/04/18 01/05/18 01/05/18 22:25 05:20 05:20 APTT 30.0 32.7 H APC Resistance Antithrombin III Activ Factor VIII Activity Puncture Site Patient Temperature O2 Saturation ABG pH ABG pCO2 ABG pO2 ABG HCO3 ABG O2 Content ABG Base Excess ABG Methemoglobin Tristan Test Hemoglobin Carboxyhemoglobin O2 Delivery Device Liter Flow Inspired O2 Critical Value Creatinine 0.89 Estimated GFR Greater than 89 Homocysteine Cardiovas Beta-2-GPI IgG Ab Beta-2-GPI IgA Ab Beta-2-GPI IgM Ab 01/05/18 11:38 APTT 35.3 H APC Resistance Antithrombin III Activ Factor VIII Activity Puncture Site Patient Temperature O2 Saturation ABG pH ABG pCO2 ABG pO2 ABG HCO3 ABG O2 Content ABG Base Excess ABG Methemoglobin Tristan Test Hemoglobin Carboxyhemoglobin O2 Delivery Device Liter Flow Inspired O2 Critical Value Creatinine Estimated GFR Homocysteine Cardiovas Beta-2-GPI IgG Ab Beta-2-GPI IgA Ab Beta-2-GPI IgM Ab Microbiology 01/04/18 02:45 Sputum - Oral Tracheal Aspirate Gram Stain - Final 01/04/18 02:45 Sputum - Oral Tracheal Aspirate Sputum Culture - Preliminary Heavy growth normal respiratory sourav at 24 hours - Imaging Impressions Chest X-Ray 01/04/18 19:24 CONCLUSION: Improved right-sided pleural effusion and basilar airspace last day. Assessment and Plan - Assessment (1) Pneumonia Code(s): J18.9 - Pneumonia, unspecified organism Status: Acute (2) Pleural effusion associated with pulmonary infection Code(s): J18.9 - Pneumonia, unspecified organism; J91.8 - Pleural effusion in other conditions classified elsewhere Status: Acute (3) Atelectasis Code(s): J98.11 - Atelectasis Status: Acute (4) Pulmonary embolism Code(s): I26.99 - Other pulmonary embolism without acute cor pulmonale Status : Acute - Plan 1. Continue Antibiotic Zosyn/ D/C Zithromax 2. O2 2 L N/C prn. 3. Solumedrol 40 mg IV BID X 3 days 4. Nebs qid , duoneb 5. D/C mucomyst 6. IS at Bedside Q2H 7. CBC,BMP CXR in am 8. Continue heparin drip per heme 9. Will consider bronchoscopy if next CXR shows no resolution of pneumonia (4) Pulmonary embolism Qualifiers: Chronicity: acute Acute cor pulmonale presence: without acute cor pulmonale
--- NOTE | 2018-01-05 17:47 | P.PNONC ---
Subjective Interval history: Resting comfortably in bedside chair in no distress. He is looking forward to leaving the hospital. Objective Vital Signs/Intake & Output: Vital Signs 01/04/18 19:04 01/04/18 19:12 01/04/18 19:13 Temperature 98.7 F Pulse Rate 106 H 103 H Respiratory Rate 23 16 19 Blood Pressure 133/79 Pulse Oximetry 93 L 01/04/18 20:00 01/05/18 00:00 01/05/18 04:00 Temperature 98.4 F 99.4 F 98.1 F Pulse Rate 101 H 99 H 86 Respiratory Rate 20 20 20 Blood Pressure 138/77 128/65 122/67 Pulse Oximetry 91 L 91 L 96 01/05/18 07:25 01/05/18 08:00 01/05/18 12:00 Temperature 98.0 F 98.3 F Pulse Rate 95 H 93 H 92 H Respiratory Rate 18 18 19 Blood Pressure 127/66 125/64 Pulse Oximetry 95 95 95 01/05/18 14:19 01/05/18 16:00 Temperature 98.0 F Pulse Rate 100 H 90 Respiratory Rate 18 19 Blood Pressure 122/62 Pulse Oximetry 95 Intake & Output 01/04/18 01/05/18 01/05/18 18:59 06:59 18:59 Intake Total 1050 / 1050 2930 / 2930 1115 / 1115 Output Total 740 / 740 Balance 1050 / 1050 2190 / 2190 1115 / 1115 Weight 128.4 kg Intake: IV 1050 / 1050 2570 / 2570 1115 / 1115 Heparin/D5W 25,000 U/250 mL 25, 250 / 250 250 / 250 000 unit In 250 ml @ Per Protocol IV.CONT TITRATE PRN Rx #:[id number] Sodium Bicarbonate 8.4% Inj 75 950 / 950 1600 / 1600 250 / 250 MEQ In NS Inj 925 ML @ 125 mls/ hr IV.CONT .Q8H [facility] Rx#: [id number] Zosyn 4.5 GM Premix 4.5 gm In 100 / 100 200 / 200 100 / 100 100 ml @ 200 mls/hr IV.SIG Q8H [facility] Rx#:[id number] Vancomycin Inj 1,500 MG In NS 520 / 520 515 / 515 Inj 500 ML @ 250 mls/hr IV.SIG Q12H [facility] Rx#:[id number] Oral 360 / 360 Output: Urine 740 / 740 Other: # Voids 1 Date of Last Bowel Movement 01/04/18 01/04/18 Result Diagrams: 01/04/18 15:58 01/05/18 05:20 Laboratory Results: Laboratory Results - last 24 hr 01/02/18 01/02/18 01/04/18 10:00 10:00 20:05 APTT APC Resistance 4.3 Antithrombin III Activ 85 Factor VIII Activity 189 H Puncture Site Right radial Patient Temperature 98.6 O2 Saturation 85 L* ABG pH 7.42 ABG pCO2 42 ABG pO2 54 L* ABG HCO3 27 H ABG O2 Content 15.5 ABG Base Excess 2.7 H ABG Methemoglobin 1.5 Tristan Test Present Hemoglobin 13.1 Carboxyhemoglobin 1.2 O2 Delivery Device Nasal cannula Liter Flow 2.00 Inspired O2 28 Critical Value Yes Creatinine Estimated GFR Homocysteine Cardiovas 5.1 Beta-2-GPI IgG Ab <9 Beta-2-GPI IgA Ab <9 Beta-2-GPI IgM Ab <9 01/04/18 01/05/18 01/05/18 22:25 05:20 05:20 APTT 30.0 32.7 H APC Resistance Antithrombin III Activ Factor VIII Activity Puncture Site Patient Temperature O2 Saturation ABG pH ABG pCO2 ABG pO2 ABG HCO3 ABG O2 Content ABG Base Excess ABG Methemoglobin Tristan Test Hemoglobin Carboxyhemoglobin O2 Delivery Device Liter Flow Inspired O2 Critical Value Creatinine 0.89 Estimated GFR Greater than 89 Homocysteine Cardiovas Beta-2-GPI IgG Ab Beta-2-GPI IgA Ab Beta-2-GPI IgM Ab 01/05/18 11:38 APTT 35.3 H APC Resistance Antithrombin III Activ Factor VIII Activity Puncture Site Patient Temperature O2 Saturation ABG pH ABG pCO2 ABG pO2 ABG HCO3 ABG O2 Content ABG Base Excess ABG Methemoglobin Tristan Test Hemoglobin Carboxyhemoglobin O2 Delivery Device Liter Flow Inspired O2 Critical Value Creatinine Estimated GFR Homocysteine Cardiovas Beta-2-GPI IgG Ab Beta-2-GPI IgA Ab Beta-2-GPI IgM Ab Culture Results: Microbiology 01/04/18 02:45 Gram Stain - Final Sputum - Oral Tracheal Aspirate Sputum Culture - Preliminary Heavy growth normal respiratory sourav at 24 hours 01/04/18 02:45 Stool Occult Blood (BRANDY) - Final Stool Hemoccult negative Imaging Studies: Impressions Chest X-Ray 01/04/18 19:24 CONCLUSION: Improved right-sided pleural effusion and basilar airspace last day. Medications: Active Medications Generic Name Dose Route Start Last Admin Trade Name Freq PRN Reason Stop Dose Admin Acetaminophen 650 mg 01/02/18 03:23 01/02/18 16:05 Tylenol PO 650 mg Q4H PRN Administration Temp > 100.4 Hydrocodone Bitart/Acetaminophen 1 tab 01/02/18 03:26 01/04/18 20:15 Halbur 5/325 PO 1 tab Q4H PRN Administration pain 1 to 10 Albuterol 1 ampul 01/02/18 09:05 01/02/18 09:20 Duoneb Neb (Prn) NEB 1 ampul Q2HR NEB PRN Administration SHORTNESS OF BREATH/WHEEZING Albuterol 1 ampul 01/02/18 14:00 01/05/18 14:16 Duoneb Neb (Kati) NEB 1 ampul Q6HR WHILE AWAKE NEB [facility]I Administration Azithromycin 500 mg 01/02/18 10:00 01/05/18 09:46 Zithromax PO 500 mg DAILY [facility] Administration Heparin Sodium/Dextrose 25,000 unit in 250 mls @ 0 mls/hr 01/02/18 03:27 03/24 09:53 Heparin/D5w 25,000 U/250 Ml IV.CONT 2,400 units/hr TITRATE PRN 24 mls/hr Per Protocol Administration Protocol Per Protocol Piperacillin/Tazobactam/Dextrose 4.5 gm in 100 mls @ 200 mls/hr 01/02/18 20: 00 01/05/18 13:54 Zosyn 4.5 Gm Premix IV.SIG Infused Q8H [facility] Infusion Vancomycin HCl 1,500 mg/ 515 mls @ 250 mls/hr 01/05/18 11:00 01/05/18 13:22 Sodium Chloride IV.SIG Infused Q12H [facility] Infusion Methylprednisolone Sodium Succinate 40 mg 01/02/18 21:00 01/05/18 09:46 Solumedrol Inj IV.PUSH 40 mg Q12HR [facility] Administration Morphine Sulfate 4 mg 01/04/18 14:26 01/05/18 03:11 Morphine Inj IV.PUSH 4 mg Q4H PRN Administration BREAKTHROUGH PAIN Ondansetron HCl 4 mg 01/02/18 03:23 01/04/18 19:03 Zofran Inj IV.PUSH 4 mg Q6H PRN Administration NAUSEA OR VOMITING Objective Remarks: GENERAL: Well-nourished, well-developed patient. SKIN: Warm and dry. HEAD: Normocephalic. EYES: No scleral icterus. No injection or drainage. RESPIRATORY: No accessory muscle use. GASTROINTESTINAL: Abdomen soft, non-tender, nondistended. EXTREMITIES: No cyanosis, or edema. MUSCULOSKELETAL: Adequate muscle tone. NEUROLOGICAL: No obvious focal deficit. Awake, alert, and oriented x3. PSYCHIATRIC: Appropriate mood and affect; insight and judgment normal. Assessment/Plan (1) Pulmonary embolism Code(s): I26.99 - Other pulmonary embolism without acute cor pulmonale Status : Acute - Plan Pulmonary embolism: provoked. Continue IV heparin therapy while inpatient. Once ready for discharge transition to rivaroxaban or apixaban for outpatient anticoagulation. He will need close follow up in hematology clinic on discharge. Pneumonia/mediastinal/hilar LAD: on antibiotic therapy. Pulmonary team following. (1) Pulmonary embolism Qualifiers: Chronicity: acute Acute cor pulmonale presence: without acute cor pulmonale
[2018-01-05] MEDS: guaiFENesin 600 MG ER Tablet PO SCH (20:05)
[2018-01-06 03:50] LABS: Dil Russell Viper Venom Conf ( ND (NEGATIVE); Dil Russell Viper Venom Time M ND (CORRECTED); Lupus Anticoagulant PTT Screen 43 seconds (< OR = 40)
[2018-01-06] MEDS: Piperacil/Tazo 4.5 GM Premix 4.5 GM/100 ML BAG IV.SIG SCH ×3 (04:08→20:30)
[2018-01-06] MEDS: Heparin Drip 25,000 UNIT/250 ML BAG IV.CONT PRN ×2 (05:42→15:20)
[2018-01-06 08:08] LABS: Baso # (Auto) 0.1 th/mm3 (0.0-0.2); Baso % (Auto) 0.4 % (0.0-2.0); Eos % (Auto) 0.1 % (0.0-4.0); Hematocrit 39.3 % (39.0-51.0); Hemoglobin 13.1 gm/dL (13.0-17.0); Lymph # (Auto) 2.4 th/mm3 (1.0-4.8); Lymph % (Auto) 16.1 % (9.0-44.0); Mean Corpuscular HGB Conc 33.3 % (32.0-36.0); Mean Corpuscular Hemoglobin 28.2 pg (27.0-34.0); Mean Corpuscular Volume 84.8 fL (80.0-100.0); Mean Platelet Volume 8.4 fL (7.0-11.0); Mono # (Auto) 1.2 th/mm3 (0.0-0.9); Mono % (Auto) 8.2 % (0.0-8.0); Neut # (Auto) 11.3 th/mm3 (1.8-7.7); Neut % (Auto) 75.2 % (16.0-70.0); Platelet Count 454 th/mm3 (150-450); Red Blood Count 4.64 mil/mm3 (4.50-5.90); Red Cell Distribution Width 13.6 % (11.6-17.2)
[2018-01-06 08:16] LABS: Chloride 103 meq/L (98-107); Potassium 3.8 meq/L (3.5-5.1); Sodium 138 meq/L (136-145)
[2018-01-06 08:20] LABS: Anion Gap 11 meq/L (5-15); Blood Urea Nitrogen 11 mg/dL (7-18); Calcium 8.9 mg/dL (8.5-10.1); Carbon Dioxide 23.8 meq/L (21.0-32.0); Glucose,Random 122 mg/dL (74-106)
[2018-01-06 08:23] LABS: Glomerular Filtration Rate Greater Than 89 mL/min (>89)
--- NOTE | 2018-01-06 08:25 | XR ---
EXAM DATE: 01/06/2018 8:19 AM EDT AGE/SEX: 22 years / Male INDICATIONS: Pneumonia, short of breath. CLINICAL DATA: This is the patient's initial encounter. Patient reports that signs and symptoms have been present for 1 week and indicates a pain score of 0/10. MEDICAL/SURGICAL HISTORY: None. None. COMPARISON: [facility], CHEST 1V SINGLE AP, 01/04/2018. . FINDINGS: There are increasing consolidative changes in the right base Left lung is clear The heart and pulmonary vascularity are normal. The portion of the bony skeleton visualized is unremarkable. . CONCLUSION: Increasing consolidative changes right base Electronically signed by: Chon Holland MD 01/06/2018 8:24 AM EDT
[2018-01-06] MEDS: Azithromycin 250 MG Tablet PO SCH (08:45)
[2018-01-06] MEDS: guaiFENesin 600 MG ER Tablet PO SCH ×2 (08:46→20:31)
[2018-01-06] MEDS: MethylPREDNISolone Sod Succinate Inj 40 MG/ML Vial IV.PUSH SCH (08:46)
[2018-01-06] MEDS ORDERED: Pharmacy Ordered Lab Info OTHER ONE (10:45)
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
[2018-01-06] MEDS: Vancomycin Inj 1,500 MG in Sodium Chlor 0.9% Inj 500 ML IV.SIG SCH ×2 (11:23→20:30)
--- NOTE | 2018-01-06 15:45 | P.PNONC ---
Subjective Interval history: Mr. Clay was seen and examined, vital signs, labs and medications reviewed. Recent imaging scans including chest x-rays and CT imaging reviewed. Subjectively, the patient reports feeling slightly better, he continues to have shortness of breath however the pain along the right side of his chest has decreased. Also he no longer is having cold sweats and feverish feeling. He remains on therapeutic anticoagulation with a heparin infusion and is on IV antibiotics consisting of vancomycin and Zosyn. Objective Vital Signs/Intake & Output: Vital Signs 01/05/18 16:00 01/05/18 19:13 01/05/18 19:18 Temperature 98.0 F Pulse Rate 90 97 H 83 Respiratory Rate 19 20 18 Blood Pressure 122/62 Pulse Oximetry 95 95 01/05/18 20:00 01/06/18 00:00 01/06/18 04:00 Temperature 96.9 F L 97.8 F 96.4 F L Pulse Rate 93 H 75 75 Respiratory Rate 20 20 20 Blood Pressure 115/63 118/69 126/74 Pulse Oximetry 96 96 97 01/06/18 05:51 01/06/18 07:35 01/06/18 08:00 Temperature 96.8 F L Pulse Rate 99 H 87 Respiratory Rate 18 18 Blood Pressure 127/74 Pulse Oximetry 93 L 95 95 01/06/18 08:06 01/06/18 12:00 Temperature 98.1 F Pulse Rate 107 H 88 Respiratory Rate 18 Blood Pressure 129/75 Pulse Oximetry 96 Intake & Output 01/05/18 01/06/18 01/06/18 18:59 06:59 18:59 Intake Total 2074 / 2075 1215 / 1215 765 / 765 Balance 2074 / 2074 1215 / 1215 765 / 765 Weight 128 kg Intake: IV 1115 / 1115 1215 / 1215 765 / 765 Heparin/D5W 25,000 U/250 mL 25, 250 / 250 500 / 500 250 / 250 000 unit In 250 ml @ Per Protocol IV.CONT TITRATE PRN Rx #:[id number] Sodium Bicarbonate 8.4% Inj 75 250 / 250 MEQ In NS Inj 925 ML @ 125 mls/ hr IV.CONT .Q8H GLENDA Rx#: [id number] Zosyn 4.5 GM Premix 4.5 gm In 100 / 100 200 / 200 100 ml @ 200 mls/hr IV.SIG Q8H GLENDA Rx#:[id number] Vancomycin Inj 1,500 MG In NS 515 / 515 515 / 515 515 / 515 Inj 500 ML @ 250 mls/hr IV.SIG Q12H GLENDA Rx#:[id number] Oral 960 / 960 Other: # Voids 6 Date of Last Bowel Movement 01/04/18 01/04/18 # Bowel Movements 0 Result Diagrams: 01/06/18 07:28 01/06/18 07:51 Laboratory Results: Laboratory Results - last 24 hr 01/02/18 01/05/18 01/05/18 10:00 17:52 23:54 CBC w Diff WBC RBC Hgb Hct MCV MCH MCHC RDW Plt Count MPV Neut % (Auto) Lymph % (Auto) [place] % (Auto) Eos % (Auto) Baso % (Auto) Neut # (Auto) Lymph # (Auto) [place] # (Auto) Eos # (Auto) Baso # (Auto) WBC Differential Differential Comment APTT 45.8 H D 45.8 H Thrombin Time 14 Lupus Anticoagulant LA PTT Screen 43 H dRVVT Screen 38 LA dRVVT Confirm ND dRVVT Mix ND Hexagonal Phase Confirm Positive A Sodium Potassium Chloride Carbon Dioxide Anion Gap BUN Creatinine Estimated GFR Random Glucose Calcium Vancomycin Trough Beta-2-GPI IgG Ab <9 Beta-2-GPI IgA Ab <9 Beta-2-GPI IgM Ab <9 Phosphatidylserine IgG Less than 10.0 Phosphatidylserine IgA Less than 20.0 Phosphatidylserine IgM Less than 25.0 01/06/18 01/06/18 01/06/18 07:28 07:28 07:51 CBC w Diff Auto diff final WBC 15.0 H RBC 4.64 Hgb 13.1 Hct 39.3 MCV 84.8 MCH 28.2 MCHC 33.3 RDW 13.6 Plt Count 454 H MPV 8.4 Neut % (Auto) 75.2 H Lymph % (Auto) 16.1 [place] % (Auto) 8.2 H Eos % (Auto) 0.1 Baso % (Auto) 0.4 Neut # (Auto) 11.3 H Lymph # (Auto) 2.4 [place] # (Auto) 1.2 H Eos # (Auto) 0.0 Baso # (Auto) 0.1 WBC Differential . Differential Comment . APTT 52.8 H Thrombin Time Lupus Anticoagulant LA PTT Screen dRVVT Screen LA dRVVT Confirm dRVVT Mix Hexagonal Phase Confirm Sodium 138 Potassium 3.8 Chloride 103 Carbon Dioxide 23.8 Anion Gap 11 BUN 11 Creatinine 0.77 Estimated GFR Greater than 89 Random Glucose 122 H Calcium 8.9 Vancomycin Trough Beta-2-GPI IgG Ab Beta-2-GPI IgA Ab Beta-2-GPI IgM Ab Phosphatidylserine IgG Phosphatidylserine IgA Phosphatidylserine IgM 01/06/18 10:04 CBC w Diff WBC RBC Hgb Hct MCV MCH MCHC RDW Plt Count MPV Neut % (Auto) Lymph % (Auto) [place] % (Auto) Eos % (Auto) Baso % (Auto) Neut # (Auto) Lymph # (Auto) [place] # (Auto) Eos # (Auto) Baso # (Auto) WBC Differential Differential Comment APTT Thrombin Time Lupus Anticoagulant LA PTT Screen dRVVT Screen LA dRVVT Confirm dRVVT Mix Hexagonal Phase Confirm Sodium Potassium Chloride Carbon Dioxide Anion Gap BUN Creatinine Estimated GFR Random Glucose Calcium Vancomycin Trough 3.7 L Beta-2-GPI IgG Ab Beta-2-GPI IgA Ab Beta-2-GPI IgM Ab Phosphatidylserine IgG Phosphatidylserine IgA Phosphatidylserine IgM Culture Results: Microbiology 01/04/18 02:45 Gram Stain - Final Sputum - Oral Tracheal Aspirate Sputum Culture - Final Heavy growth normal respiratory sourav 01/04/18 02:45 Stool Occult Blood (BRANDY) - Final Stool Hemoccult negative Imaging Studies: Impressions Chest X-Ray 01/06/18 00:00 CONCLUSION: Increasing consolidative changes right base Medications: Active Medications Generic Name Dose Route Start Last Admin Trade Name Freq PRN Reason Stop Dose Admin Acetaminophen 650 mg 01/02/18 03:23 01/02/18 16:05 Tylenol PO 650 mg Q4H PRN Administration Temp > 100.4 Hydrocodone Bitart/Acetaminophen 1 tab 01/02/18 03:26 01/04/18 20:15 [place] 5/325 PO 1 tab Q4H PRN Administration pain 1 to 10 Albuterol 1 ampul 01/02/18 09:05 01/06/18 06:00 Duoneb Neb (Prn) NEB 1 ampul Q2HR NEB PRN Administration SHORTNESS OF BREATH/WHEEZING Azithromycin 500 mg 01/02/18 10:00 01/06/18 08:45 Zithromax PO 500 mg DAILY GLENDA Administration Guaifenesin 600 mg 01/05/18 21:00 01/06/18 08:46 Mucinex Er PO 600 mg BID GLENDA Administration Heparin Sodium/Dextrose 25,000 unit in 250 mls @ 0 mls/hr 01/02/18 03:27 04/24 15:20 Heparin/D5w 25,000 U/250 Ml IV.CONT 2,600 units/hr TITRATE PRN 26 mls/hr Per Protocol Administration Protocol Per Protocol Piperacillin/Tazobactam/Dextrose 4.5 gm in 100 mls @ 200 mls/hr 01/02/18 20: 00 01/06/18 14:03 Zosyn 4.5 Gm Premix IV.SIG 200 mls/hr Q8H GLENDA Administration Methylprednisolone Sodium Succinate 40 mg 01/02/18 21:00 01/06/18 08:46 Solumedrol Inj IV.PUSH 40 mg Q12HR GLENDA Administration Morphine Sulfate 4 mg 01/04/18 14:26 01/05/18 03:11 Morphine Inj IV.PUSH 4 mg Q4H PRN Administration BREAKTHROUGH PAIN Ondansetron HCl 4 mg 01/02/18 03:23 01/04/18 19:03 Zofran Inj IV.PUSH 4 mg Q6H PRN Administration NAUSEA OR VOMITING Objective Remarks: GENERAL: Young male, sitting up on a bedside chair, he appears to be no acute distress, has nasal cannulas in place for oxygen supplementation. Well- nourished, well-developed patient. SKIN: Warm and dry. HEAD: Normocephalic. EYES: No scleral icterus. No injection or drainage. RESPIRATORY: Improved air entry over the right base. No wheezes or rhonchi, no obvious crepitus. Air entry over the left base remains greater than air entry into the right base. Cardiac: Regular rate and rhythm, S1-S2 no obvious murmurs rubs gallops. GASTROINTESTINAL: Obese abdomen, abdomen soft, non-tender, nondistended. EXTREMITIES: No cyanosis, or edema. MUSCULOSKELETAL: Adequate muscle tone. NEUROLOGICAL: No obvious focal deficit. Awake, alert, and oriented x3. PSYCHIATRIC: Appropriate mood and affect; insight and judgment normal. Assessment/Plan (1) Pulmonary embolism Code(s): I26.99 - Other pulmonary embolism without acute cor pulmonale Status : Acute - Plan 22-year-old man presents to the hospital with right-sided anterior chest pain, this is pleuritic in nature. Associated with fevers and sweats. Initial CT angiogram was concerning for pulmonary emboli (small volume). Repeat CT scan of the thorax was negative for pulmonary emboli. He remains on therapeutic anticoagulation currently with heparin infusion. CT findings indicated parenchymal infiltrates involving the right lung associated with pleural effusion on the right side. Hilar mediastinal lymphadenopathy was also appreciated. He is presently on broad-spectrum antibiotic coverage for pneumonia/empyema. Clinically improving very gradually. Pulmonology has been involved and they may perform a bronchoscopy early next week if he is not improved clinically. Pulmonary embolism: On IV heparin. Transition to oral factor Xa inhibitor therapy at the time of discharge. Alternatively, he may be a candidate for warfarin if his insurance does not cover 1 of the oral factor X inhibitor such as Xarelto or Eliquis. I also spoke to the primary team about talking the patient about possible communicable diseases such as sexually transmitted diseases which may affect his immune immunity. Pneumonia/mediastinal/hilar LAD: on antibiotic therapy. Pulmonary team following. (1) Pulmonary embolism Qualifiers: Chronicity: acute Acute cor pulmonale presence: without acute cor pulmonale
--- NOTE | 2018-01-06 19:26 | P.PN ---
Subjective Interval history: States that chest pain is better. On O2 2 L. Chest Xray looks worse. No fever Physical Exam Vital signs: Vital Signs 01/05/18 20:00 01/06/18 00:00 01/06/18 04:00 Temperature 96.9 F L 97.8 F 96.4 F L Pulse Rate 93 H 75 75 Respiratory Rate 20 20 20 Blood Pressure 115/63 118/69 126/74 Pulse Oximetry 96 96 97 01/06/18 05:51 01/06/18 07:35 01/06/18 08:00 Temperature 96.8 F L Pulse Rate 99 H 87 Respiratory Rate 18 18 Blood Pressure 127/74 Pulse Oximetry 93 L 95 95 01/06/18 08:06 01/06/18 12:00 01/06/18 12:10 Temperature 98.1 F Pulse Rate 107 H 88 99 H Respiratory Rate 18 Blood Pressure 129/75 Pulse Oximetry 96 01/06/18 16:00 01/06/18 17:06 Temperature 97.9 F Pulse Rate 90 90 Respiratory Rate 18 19 Blood Pressure 126/78 Pulse Oximetry 96 Intake & Output 01/06/18 01/06/18 01/07/18 06:59 18:59 06:59 Intake Total 1215 / 1215 865 / 865 Balance 1215 / 1215 865 / 865 Weight 128 kg Intake: IV 1215 / 1215 865 / 865 Heparin/D5W 25,000 U/250 mL 25, 500 / 500 250 / 250 000 unit In 250 ml @ Per Protocol IV.CONT TITRATE PRN Rx #:[id number] Zosyn 4.5 GM Premix 4.5 gm In 200 / 200 100 / 100 100 ml @ 200 mls/hr IV.SIG Q8H GLENDA Rx#:[id number] Vancomycin Inj 1,500 MG In NS 515 / 515 515 / 515 Inj 500 ML @ 250 mls/hr IV.SIG Q12H GLENDA Rx#:[id number] Other: # Voids 6 Date of Last Bowel Movement 01/04/18 01/04/18 # Bowel Movements 0 Narrative: GENERAL: Well-developed,heavy set male patient lying in bed in no acute distress. alert and orientated. HEENT: Head is normocephalic without any lesions or masses noted. Facial features are symmetric. Eyes: Pupils equal round reactive to light. Extraocular muscles are intact. Conjunctivae were clear. Oropharyngeal: Pharynx without any erythema. Buccal mucosa is moist without any masses or lesions NECK: Supple without any masses. Trachea midline no deviation. No JVD, no bruits are appreciated CARDIAC: Regular rhythm, regular rate. S1/S2 are heard. No murmurs gallops or rubs. LUNGS: Decreased breath sounds right base. No use of accessory muscles on inspiration or expiration. ABDOMEN: Soft, nontender. Nondistended. Bowel sounds heard in all 4 quadrants. No organomegaly or masses. Negative rebound, negative guarding EXTREMITIES: No edema, pulses are equal bilaterally. No cyanosis or clubbing NEUROLOGY: Mood and affect appear appropriate. Cranial nerves II through XII grossly intact.Reflexes 1 +. Results - Labs CBC & Chem 7: 01/06/18 07:28 01/06/18 07:51 Laboratory Results - last 24 hr 01/02/18 01/05/18 01/06/18 10:00 23:54 07:28 CBC w Diff WBC RBC Hgb Hct MCV MCH MCHC RDW Plt Count MPV Neut % (Auto) Lymph % (Auto) [place] % (Auto) Eos % (Auto) Baso % (Auto) Neut # (Auto) Lymph # (Auto) [place] # (Auto) Eos # (Auto) Baso # (Auto) WBC Differential Differential Comment APTT 45.8 H 52.8 H Thrombin Time 14 Lupus Anticoagulant LA PTT Screen 43 H dRVVT Screen 38 LA dRVVT Confirm ND dRVVT Mix ND Hexagonal Phase Confirm Positive A Sodium Potassium Chloride Carbon Dioxide Anion Gap BUN Creatinine Estimated GFR Random Glucose Calcium Vancomycin Trough Phosphatidylserine IgG Less than 10.0 Phosphatidylserine IgA Less than 20.0 Phosphatidylserine IgM Less than 25.0 01/06/18 01/06/18 01/06/18 07:28 07:51 10:04 CBC w Diff Auto diff final WBC 15.0 H RBC 4.64 Hgb 13.1 Hct 39.3 MCV 84.8 MCH 28.2 MCHC 33.3 RDW 13.6 Plt Count 454 H MPV 8.4 Neut % (Auto) 75.2 H Lymph % (Auto) 16.1 [place] % (Auto) 8.2 H Eos % (Auto) 0.1 Baso % (Auto) 0.4 Neut # (Auto) 11.3 H Lymph # (Auto) 2.4 [place] # (Auto) 1.2 H Eos # (Auto) 0.0 Baso # (Auto) 0.1 WBC Differential . Differential Comment . APTT Thrombin Time Lupus Anticoagulant LA PTT Screen dRVVT Screen LA dRVVT Confirm dRVVT Mix Hexagonal Phase Confirm Sodium 138 Potassium 3.8 Chloride 103 Carbon Dioxide 23.8 Anion Gap 11 BUN 11 Creatinine 0.77 Estimated GFR Greater than 89 Random Glucose 122 H Calcium 8.9 Vancomycin Trough 3.7 L Phosphatidylserine IgG Phosphatidylserine IgA Phosphatidylserine IgM Microbiology 01/04/18 02:45 Sputum - Oral Tracheal Aspirate Gram Stain - Final 01/04/18 02:45 Sputum - Oral Tracheal Aspirate Sputum Culture - Final Heavy growth normal respiratory sourav - Imaging Impressions Chest X-Ray 01/06/18 00:00 CONCLUSION: Increasing consolidative changes right base Assessment and Plan - Assessment (1) Pneumonia Code(s): J18.9 - Pneumonia, unspecified organism Status: Acute (2) Pleural effusion associated with pulmonary infection Code(s): J18.9 - Pneumonia, unspecified organism; J91.8 - Pleural effusion in other conditions classified elsewhere Status: Acute (3) Atelectasis Code(s): J98.11 - Atelectasis Status: Acute (4) Pulmonary embolism Code(s): I26.99 - Other pulmonary embolism without acute cor pulmonale Status : Acute - Plan 1. Continue Antibiotic Zosyn/Vancomycin 2. O2 2 L N/C prn. 3. Will schedule Bronchoscopy on tuesday to Evaluate Right lung 4. Nebs qid , duoneb 5. Will hold heparin drip on Tuesday am at 3 AM 6. IS at Bedside Q2H 7. CBC,coags in am 8. Continue heparin drip 9. Ez pap with nebs qid (4) Pulmonary embolism Qualifiers: Chronicity: acute Acute cor pulmonale presence: without acute cor pulmonale
[2018-01-07] MEDS: Heparin Drip 25,000 UNIT/250 ML BAG IV.CONT PRN ×3 (01:05→19:37)
[2018-01-07] MEDS: Piperacil/Tazo 4.5 GM Premix 4.5 GM/100 ML BAG IV.SIG SCH ×3 (03:32→20:47)
[2018-01-07] MEDS: Vancomycin Inj 1,500 MG in Sodium Chlor 0.9% Inj 500 ML IV.SIG SCH ×2 (03:33→12:29)
[2018-01-07 07:47] LABS: Glomerular Filtration Rate Greater Than 89 mL/min (>89)
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
[2018-01-07] MEDS: Azithromycin 250 MG Tablet PO SCH (08:47)
[2018-01-07] MEDS: guaiFENesin 600 MG ER Tablet PO SCH ×2 (08:48→20:47)
[2018-01-07] MEDS ORDERED: Pharmacy Ordered Lab Info OTHER ONE (11:45)
[2018-01-07] MEDS: Vancomycin Inj 1,800 MG in Sodium Chlor 0.9% Inj 500 ML IV.SIG SCH (17:54)
[2018-01-08] MEDS: Vancomycin Inj 1,800 MG in Sodium Chlor 0.9% Inj 500 ML IV.SIG SCH ×3 (01:00→17:03)
[2018-01-08] MEDS: Piperacil/Tazo 4.5 GM Premix 4.5 GM/100 ML BAG IV.SIG SCH ×3 (03:25→20:55)
[2018-01-08] MEDS: Heparin Drip 25,000 UNIT/250 ML BAG IV.CONT PRN ×3 (04:20→23:16)
[2018-01-08] MEDS: Azithromycin 250 MG Tablet PO SCH (08:35)
[2018-01-08] MEDS: guaiFENesin 600 MG ER Tablet PO SCH ×2 (08:37→20:56)
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
--- NOTE | 2018-01-08 17:35 | P.PNPL ---
Subjective Interval history: 22 YOWM with Pn,Pl eff, PE Up in chair Denies sob On NC No fever Physical Exam Vital signs: Vital Signs 01/07/18 18:52 01/07/18 20:00 01/07/18 20:39 Temperature 98.5 F Pulse Rate 100 H 101 H Respiratory Rate 20 20 Blood Pressure 130/67 Pulse Oximetry 97 96 01/08/18 00:00 01/08/18 03:32 01/08/18 04:00 Temperature 99.2 F 98.8 F Pulse Rate 90 104 H 92 H Respiratory Rate 20 20 20 Blood Pressure 108/65 108/66 Pulse Oximetry 93 L 96 01/08/18 08:00 01/08/18 09:18 01/08/18 10:25 Temperature 98.2 F Pulse Rate 90 94 H 96 H Respiratory Rate 19 20 Blood Pressure 119/74 Pulse Oximetry 93 L 93 L 01/08/18 12:00 01/08/18 15:56 01/08/18 16:00 Temperature 97.7 F 98.8 F Pulse Rate 99 H 97 H Respiratory Rate 19 19 Blood Pressure 117/69 118/66 Pulse Oximetry 95 94 L 95 Intake & Output 01/07/18 01/08/18 01/08/18 19:59 06:59 18:59 Intake Total 868 / 868 Output Total 500 / 500 Balance 368 / 368 Weight Intake: IV 868 / 868 Heparin/D5W 25,000 U/250 mL 25, 250 / 250 000 unit In 250 ml @ Per Protocol IV.CONT TITRATE PRN Rx #:[id number] Zosyn 4.5 GM Premix 4.5 gm In 100 / 100 100 ml @ 200 mls/hr IV.SIG Q8H GLENDA Rx#:[id number] Vancomycin Inj 1,800 MG In NS 518 / 518 Inj 500 ML @ 250 mls/hr IV.SIG Q8H GLENDA Rx#:[id number] Output: Urine 500 / 500 Other: Date of Last Bowel Movement GENERAL: WBWn, NAD, up in chair SKIN: Warm and dry. HEAD: Normocephalic. EYES: No scleral icterus. No injection or drainage. NECK: Supple, trachea midline. No JVD or lymphadenopathy. CARDIOVASCULAR: Regular rate and rhythm without murmurs, gallops, or rubs. RESPIRATORY: Breath sounds equal bilaterally. No accessory muscle use. GASTROINTESTINAL: Abdomen soft, non-tender, nondistended. MUSCULOSKELETAL: No cyanosis, or edema. BACK: Nontender without obvious deformity. No CVA tenderness. Assessment and Plan - Plan IMPRESSION: Pneumonia Pulm Embolism Pl eff Obesity PLAN: Heparin drip Cont Abx Supplement 02 [facility] for bronch in AM will FU in AM
[2018-01-08 19:57] LABS: Glomerular Filtration Rate Greater Than 89 mL/min (>89)
[2018-01-08] MEDS: Acetaminophen 325 MG Tablet PO PRN (23:18)
[2018-01-08 23:20] LABS: Amphetamine Screen,Urine Neg (Neg); Barbiturate Screen,Urine Neg (Neg); Cannabinoid Screen,Urine Neg (Neg); Cocaine Screen,Urine Neg (Neg)
[2018-01-08 23:53] LABS: Opiate Screen,Urine Neg (Neg)
[2018-01-09] MEDS: Vancomycin Inj 1,800 MG in Sodium Chlor 0.9% Inj 500 ML IV.SIG SCH ×3 (02:24→18:04)
[2018-01-09] MEDS: Piperacil/Tazo 4.5 GM Premix 4.5 GM/100 ML BAG IV.SIG SCH ×3 (04:33→21:26)
[2018-01-09 06:02] LABS: Glomerular Filtration Rate Greater Than 89 mL/min (>89)
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
[2018-01-09] MEDS: guaiFENesin 600 MG ER Tablet PO SCH ×2 (10:27→21:26)
[2018-01-09] MEDS: Azithromycin 250 MG Tablet PO SCH (10:27)
[2018-01-09] MEDS: Heparin Drip 25,000 UNIT/250 ML BAG IV.CONT PRN ×2 (12:49→22:35)
[2018-01-09 13:10] LABS: Factor V Leiden Mutation Negative (Negative); Protein C Antigen 94 % (70-150)
--- NOTE | 2018-01-09 17:51 | P.PN ---
Subjective Interval history: He had some SOB and wheezing. Bronch cancelled since he still is on heparin. Physical Exam Vital signs: Vital Signs 01/08/18 19:17 01/08/18 20:00 01/08/18 23:22 Temperature 100.2 F H 101.4 F H Pulse Rate 93 H Respiratory Rate 16 18 Blood Pressure 128/81 Pulse Oximetry 95 01/09/18 00:00 01/09/18 00:29 01/09/18 04:00 Temperature 101.3 F H 99.1 F Pulse Rate 104 H 121 H 94 H Respiratory Rate 18 22 18 Blood Pressure 141/86 H 128/88 Pulse Oximetry 94 L 94 L 01/09/18 08:00 01/09/18 08:17 01/09/18 12:00 Temperature 99.4 F 101.7 F H Pulse Rate 108 H 104 H Respiratory Rate 20 22 Blood Pressure 109/59 L 128/64 Pulse Oximetry 94 L 93 L 95 01/09/18 13:22 01/09/18 16:00 Temperature 100.0 F H 99.3 F Pulse Rate 108 H Respiratory Rate 20 Blood Pressure 132/70 Pulse Oximetry 96 Intake & Output 01/08/18 01/09/18 01/09/18 18:59 06:59 18:59 Intake Total 868 / 868 1686 / 1686 1108 / 1108 Output Total 500 / 500 1300 / 1300 2100 / 2100 Balance 368 / 368 386 / 386 -992 / -992 Weight 124.9 kg Intake: IV 868 / 868 1486 / 1486 868 / 868 Heparin/D5W 25,000 U/250 mL 25, 250 / 250 250 / 250 250 / 250 000 unit In 250 ml @ Per Protocol IV.CONT TITRATE PRN Rx #:[id number] Zosyn 4.5 GM Premix 4.5 gm In 100 / 100 200 / 200 100 / 100 100 ml @ 200 mls/hr IV.SIG Q8H GLENDA Rx#:[id number] Vancomycin Inj 1,800 MG In NS 518 / 518 1036 / 1036 518 / 518 Inj 500 ML @ 250 mls/hr IV.SIG Q8H GLENDA Rx#:[id number] Oral 200 / 200 240 / 240 Output: Urine 500 / 500 1300 / 1300 2100 / 2100 Other: # Voids 1 Narrative: GENERAL: Well-developed,heavy set male patient lying in bed in no acute distress. alert and orientated. HEENT: Head is normocephalic without any lesions or masses noted. Facial features are symmetric. Eyes: Pupils equal round reactive to light. Extraocular muscles are intact. Conjunctivae were clear. Oropharyngeal: Pharynx without any erythema. Buccal mucosa is moist without any masses or lesions NECK: Supple without any masses. Trachea midline no deviation. No JVD, no bruits are appreciated CARDIAC: Regular rhythm, regular rate. S1/S2 are heard. No murmurs gallops or rubs. LUNGS: Decreased breath sounds right base. No use of accessory muscles. ABDOMEN: Soft, nontender. Nondistended. Bowel sounds heard in all 4 quadrants. No organomegaly or masses. EXTREMITIES: No edema, pulses are equal bilaterally. No cyanosis or clubbing NEUROLOGY: Mood and affect appear appropriate. Cranial nerves II through XII grossly intact.Reflexes 1 +. Results - Labs CBC & Chem 7: 01/06/18 07:28 01/09/18 04:55 Laboratory Results - last 24 hr 01/02/18 01/08/18 01/08/18 10:00 19:32 22:32 APTT 62.8 H Protein C Antigen 94 Protein S Activity 117 Factor V Leiden Mutat Negative Factor V Leiden Interp . Fact V Leiden Review By See below Creatinine 0.85 Estimated GFR Greater than 89 Urine Opiates Screen Ur Barbiturates Screen Ur Amphetamines Screen U Benzodiazepines Scrn Urine Cocaine Screen U Cannabinoids Screen Anti-Cardiolipin IgG Ab <9.4 Anti-Cardiolipin IgM Ab <9.4 01/08/18 01/09/18 01/09/18 23:00 04:55 04:55 APTT 56.0 H Protein C Antigen Protein S Activity Factor V Leiden Mutat Factor V Leiden Interp Fact V Leiden Review By Creatinine 0.93 Estimated GFR Greater than 89 Urine Opiates Screen Neg Ur Barbiturates Screen Neg Ur Amphetamines Screen Neg U Benzodiazepines Scrn Neg Urine Cocaine Screen Neg U Cannabinoids Screen Neg Anti-Cardiolipin IgG Ab Anti-Cardiolipin IgM Ab Assessment and Plan - Assessment (1) Pneumonia Code(s): J18.9 - Pneumonia, unspecified organism Status: Acute (2) Pleural effusion associated with pulmonary infection Code(s): J18.9 - Pneumonia, unspecified organism; J91.8 - Pleural effusion in other conditions classified elsewhere Status: Acute (3) Atelectasis Code(s): J98.11 - Atelectasis Status: Acute (4) Pulmonary embolism Code(s): I26.99 - Other pulmonary embolism without acute cor pulmonale Status : Acute - Plan 1. Continue Antibiotic Zosyn/Vancomycin 2. O2 2 L N/C prn. 3. Will schedule Bronchoscopy in am to Evaluate Right lung 4. Nebs qid , duoneb 5. Will hold heparin drip at 3 AM 6. IS at Bedside Q2H 7. CBC,coags in am 8. Ez pap with nebs qid (4) Pulmonary embolism Qualifiers: Chronicity: acute Acute cor pulmonale presence: without acute cor pulmonale
[2018-01-09] MEDS ORDERED: Dextrose 5%/NaCl 0.45% Inj 1,000 ML IV.CONT SCH (18:00)
[2018-01-10] MEDS: Vancomycin Inj 1,800 MG in Sodium Chlor 0.9% Inj 500 ML IV.SIG SCH ×4 (03:37→18:19)
[2018-01-10] MEDS: Piperacil/Tazo 4.5 GM Premix 4.5 GM/100 ML BAG IV.SIG SCH ×3 (05:59→21:14)
[2018-01-10 07:31] LABS: Baso # (Auto) 0.1 th/mm3 (0.0-0.2); Baso % (Auto) 0.7 % (0.0-2.0); Eos # (Auto) 0.2 th/mm3 (0.0-0.4); Eos % (Auto) 1.1 % (0.0-4.0); Hematocrit 38.9 % (39.0-51.0); Hemoglobin 12.7 gm/dL (13.0-17.0); Lymph # (Auto) 1.9 th/mm3 (1.0-4.8); Lymph % (Auto) 12.4 % (9.0-44.0); Mean Corpuscular HGB Conc 32.8 % (32.0-36.0); Mean Corpuscular Hemoglobin 28.3 pg (27.0-34.0); Mean Corpuscular Volume 86.2 fL (80.0-100.0); Mean Platelet Volume 7.6 fL (7.0-11.0); Mono # (Auto) 1.5 th/mm3 (0.0-0.9); Mono % (Auto) 9.4 % (0.0-8.0); Neut # (Auto) 11.9 th/mm3 (1.8-7.7); Neut % (Auto) 76.4 % (16.0-70.0); Platelet Count 405 th/mm3 (150-450); Red Blood Count 4.51 mil/mm3 (4.50-5.90); Red Cell Distribution Width 13.6 % (11.6-17.2); White Blood Count 15.6 th/mm3 (4.0-11.0)
[2018-01-10 07:51] LABS: Glomerular Filtration Rate Greater Than 89 mL/min (>89)
[2018-01-10] MEDS: Azithromycin 250 MG Tablet PO SCH (08:22)
[2018-01-10] MEDS: Acetaminophen 325 MG Tablet PO PRN (08:23)
[2018-01-10] MEDS: guaiFENesin 600 MG ER Tablet PO SCH ×2 (08:23→20:24)
[2018-01-10] MEDS ORDERED: Chlorhexidine Gluconate 2% 1 Pack (2 Cloths) TOPICAL ONE (10:35)
[2018-01-10] MEDS ORDERED: Metoprolol Tartrate 25 MG Tablet PO ONE (10:35)
[2018-01-10] MEDS ORDERED: Lidocaine 2% Inj 50 ML Vial ONE (10:53)
[2018-01-10] MEDS ORDERED: EPINEPHrine PF/SF Inj 1 MG/ML Ampul I-OCULAR ONE (10:53)
[2018-01-10] MEDS ORDERED: Lidocaine 2% Jelly 5 ML Syringe ONE (10:53)
[2018-01-10] MEDS ORDERED: Sodium Chlor 0.9% Inj 500 ML IV.SIG SCH (11:00)
[2018-01-10] MEDS ORDERED: fentaNYL Citrate Inj 100 MCG/2 ML Ampul ONE (11:07)
[2018-01-10 11:29] LABS: Hematocrit 37.5 % (39.0-51.0); Hemoglobin 12.6 gm/dL (13.0-17.0); Mean Corpuscular HGB Conc 33.6 % (32.0-36.0); Mean Corpuscular Volume 86.2 fL (80.0-100.0); Mean Platelet Volume 7.7 fL (7.0-11.0); Platelet Count 386 th/mm3 (150-450); Red Blood Count 4.34 mil/mm3 (4.50-5.90); Red Cell Distribution Width 13.5 % (11.6-17.2); White Blood Count 15.9 th/mm3 (4.0-11.0)
[2018-01-10 11:42] LABS: Activated Partial Thrombo Time 23.6 sec (23.4-31.7); INR 2.2 Ratio; Prothrombin Time 22.7 sec (9.8-11.6)
--- NOTE | 2018-01-10 12:35 | MP ---
cc: Marie Carson MD DATE OF OPERATION: 01/10/2018 PROCEDURE PERFORMED: Fiberoptic bronchoscopy with brushings and washings. PREOPERATIVE DIAGNOSIS: Persistent right lung pneumonia. POSTOPERATIVE DIAGNOSES: Persistent right lung pneumonia, rule out obstruction. SURGEON: Marie Carson MD PROCEDURE AND FINDINGS: The patient was intubated under general anesthesia, following which, the Olympus IT 180 bronchoscope was used to visualize the bronchi. The scope was advanced through the endotracheal tube into the trachea. The trachea and aysha appeared normal. Scope was then advanced into the right mainstem and right upper lobe segmental bronchi. These bronchi demonstrated no gross endobronchial lesions. A few mucoid secretions noted here which were suctioned out. The right middle lobe segmental bronchi visualized. These bronchi demonstrated no gross endobronchial lesions. Saline washings were done. Next, the scope was advanced towards the right lower lobe segmental bronchi. Right lower lobe segmental bronchi demonstrated moderate endobronchitis with mucoid secretions and a few mucus plugs. These were suctioned out. The underlying bronchi showed mucosal edema, but no endobronchial mass was seen. The secretions were suctioned out. Saline washings and lavage were carried out. Brushings were done for cytology and for micro. The scope was then advanced into the left mainstem and left upper lobe segmental bronchi. These bronchi demonstrated few mucoid secretions, and no endobronchial lesions were seen. Next, left lower lobe segmental bronchi were visualized which demonstrated no endobronchial lesions. There were a few mucoid secretions noted here. Saline washings were done. The procedure was then terminated. The patient tolerated the procedure well. Marie Carson MD VJD/lh , 11:45 AM , 11:52 AM
--- NOTE | 2018-01-10 12:40 | XR ---
EXAM DATE: 01/10/2018 12:29 PM EST AGE/SEX: 22 years / Male INDICATIONS: Post bronchoscopy. Evaluate for pneumothorax. CLINICAL DATA: This is the patient's subsequent encounter. Patient reports that signs and symptoms h ave been present for 1 week and indicates a pain score of 0/10. MEDICAL/SURGICAL HISTORY: None. None. COMPARISON: [facility], CHEST 1V SINGLE AP, 01/06/2018. . FINDINGS: There is dense consolidation in right upper lobe not present previously extending to the right hilum. Right lung base opacity is present may be due to a combination of consolidation and or pleural effus ion. Slight degree of superimposed pulmonary edema may be present in the right lung. No definite pneumothorax is seen for technique. CONCLUSION: Dense right upper lobe consolidation not present previously, otherwise not significantly changed. Electronically signed by: Asuncion Kyle MD 01/10/2018 12:38 PM EST
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
[2018-01-10] MEDS ORDERED: Pharmacy Ordered Lab Info OTHER ONE (17:45)
--- NOTE | 2018-01-10 18:01 | P.PNONC ---
Subjective Interval history: Coughing bringing up sputum. Denies any bleeding. Ambulation is limited by being attached to the IV pole. Objective Vital Signs/Intake & Output: Vital Signs 01/09/18 20:00 01/09/18 21:05 01/09/18 23:45 Temperature 99.9 F H Pulse Rate 104 H 108 H Respiratory Rate 18 20 Blood Pressure 127/63 Pulse Oximetry 97 93 L 01/10/18 00:00 01/10/18 04:00 01/10/18 08:00 Temperature 100.1 F H 100.6 F H 100.7 F H Pulse Rate 108 H 108 H 113 H Respiratory Rate 16 18 22 Blood Pressure 124/60 121/66 119/56 L Pulse Oximetry 95 97 96 01/10/18 08:05 01/10/18 10:30 01/10/18 10:53 Temperature 99.3 F Pulse Rate 101 H Respiratory Rate 20 Blood Pressure 125/73 Pulse Oximetry 95 94 L 94 L 01/10/18 12:00 01/10/18 13:00 01/10/18 13:19 Temperature 100.7 F H 100.7 F H 99.4 F Pulse Rate 124 H 121 H 113 H Respiratory Rate 22 20 20 Blood Pressure 140/78 100/67 111/55 L Pulse Oximetry 92 L 93 L 95 01/10/18 16:00 Temperature 97.5 F L Pulse Rate 100 H Respiratory Rate 20 Blood Pressure 125/69 Pulse Oximetry 96 Intake & Output 01/09/18 01/10/18 01/10/18 18:59 06:59 18:59 Intake Total 1108 / 1108 1536 / 1536 1450 / 1450 Output Total 2100 / 2100 1200 / 1200 2200 / 2200 Balance -992 / -992 336 / 336 -750 / -750 Weight 123.2 kg Intake: IV 868 / 868 1386 / 1386 1010 / 1010 D5W/1/2 NS Inj 1,000 ML @ 30 50 / 50 mls/hr IV.CONT .Q24H GLENDA Rx#: [id number] Heparin/D5W 25,000 U/250 mL 25, 250 / 250 250 / 250 000 unit In 250 ml @ Per Protocol IV.CONT TITRATE PRN Rx #:[id number] LR 1000 mL Inj 1,000 ML @ 30 200 / 200 mls/hr IV.SIG .Q24H GLENDA Rx#: [id number] Zosyn 4.5 GM Premix 4.5 gm In 100 / 100 100 / 100 200 / 200 100 ml @ 200 mls/hr IV.SIG Q8H GLENDA Rx#:[id number] Vancomycin Inj 1,800 MG In NS 518 / 518 1036 / 1036 560 / 560 Inj 500 ML @ 250 mls/hr IV.SIG Q8H GLENDA Rx#:[id number] Oral 240 / 240 150 / 150 240 / 240 Anesthesia Amount 200 / 200 Output: Urine 2100 / 2100 1200 / 1200 2200 / 2200 Result Diagrams: 01/10/18 11:15 01/10/18 07:20 Laboratory Results: Laboratory Results - last 24 hr 01/10/18 01/10/18 01/10/18 07:20 07:20 11:15 CBC w Diff Auto diff final WBC 15.6 H 15.9 H RBC 4.51 4.34 L Hgb 12.7 L 12.6 L Hct 38.9 L 37.5 L MCV 86.2 86.2 MCH 28.3 29.0 MCHC 32.8 33.6 RDW 13.6 13.5 Plt Count 405 386 MPV 7.6 7.7 Neut % (Auto) 76.4 H Lymph % (Auto) 12.4 [place] % (Auto) 9.4 H Eos % (Auto) 1.1 Baso % (Auto) 0.7 Neut # (Auto) 11.9 H Lymph # (Auto) 1.9 [place] # (Auto) 1.5 H Eos # (Auto) 0.2 Baso # (Auto) 0.1 WBC Differential . Differential Comment . PT INR APTT Creatinine 0.94 Estimated GFR Greater than 89 01/10/18 11:15 CBC w Diff WBC RBC Hgb Hct MCV MCH MCHC RDW Plt Count MPV Neut % (Auto) Lymph % (Auto) [place] % (Auto) Eos % (Auto) Baso % (Auto) Neut # (Auto) Lymph # (Auto) [place] # (Auto) Eos # (Auto) Baso # (Auto) WBC Differential Differential Comment PT 22.7 H D INR 2.2 APTT 23.6 D Creatinine Estimated GFR Imaging Studies: Impressions Chest X-Ray 01/10/18 11:43 CONCLUSION: Dense right upper lobe consolidation not present previously, otherwise not significantly changed. Medications: Active Medications Generic Name Dose Route Start Last Admin Trade Name Freq PRN Reason Stop Dose Admin Acetaminophen 650 mg 01/02/18 03:23 01/10/18 08:23 Tylenol PO 650 mg Q4H PRN Administration Temp > 100.4 Hydrocodone Bitart/Acetaminophen 1 tab 01/02/18 03:26 01/09/18 21:26 [place] 5/325 PO 1 tab Q4H PRN Administration pain 1 to 10 Albuterol 1 ampul 01/02/18 09:05 01/09/18 23:47 Duoneb Neb (Prn) NEB 1 ampul Q2HR NEB PRN Administration SHORTNESS OF BREATH/WHEEZING Azithromycin 500 mg 01/02/18 10:00 01/10/18 08:22 Zithromax PO 500 mg DAILY GLENDA Administration Guaifenesin 600 mg 01/05/18 21:00 01/10/18 08:23 Mucinex Er PO 600 mg BID GLENDA Administration Piperacillin/Tazobactam/Dextrose 4.5 gm in 100 mls @ 200 mls/hr 01/02/18 20: 00 01/10/18 14:10 Zosyn 4.5 Gm Premix IV.SIG Infused Q8H GLENDA Infusion Vancomycin HCl 1,800 mg/ 518 mls @ 250 mls/hr 01/07/18 18:00 01/10/18 10:55 Sodium Chloride IV.SIG Infused Q8H GLENDA Infusion Morphine Sulfate 4 mg 01/04/18 14:26 01/05/18 03:11 Morphine Inj IV.PUSH 4 mg Q4H PRN Administration BREAKTHROUGH PAIN Ondansetron HCl 4 mg 01/02/18 03:23 01/04/18 19:03 Zofran Inj IV.PUSH 4 mg Q6H PRN Administration NAUSEA OR VOMITING Objective Remarks: GENERAL: Well-nourished, well-developed patient. SKIN: Warm and dry. HEAD: Normocephalic. EYES: No scleral icterus. No injection or drainage. NECK: Supple, trachea midline. No JVD or lymphadenopathy. LYMPHATIC: No adenopathy. CARDIOVASCULAR: Regular rate and rhythm without murmurs. RESPIRATORY: Breath sounds equal bilaterally. No accessory muscle use. GASTROINTESTINAL: Abdomen soft, non-tender, nondistended. EXTREMITIES: No cyanosis, or edema. MUSCULOSKELETAL: Adequate muscle tone. NEUROLOGICAL: No obvious focal deficit. Awake, alert, and oriented x3. PSYCHIATRIC: Appropriate mood and affect; insight and judgment normal. Assessment/Plan (1) Pulmonary embolism Code(s): I26.99 - Other pulmonary embolism without acute cor pulmonale Status : Acute - Plan 22-year-old man presents to the hospital with right-sided anterior chest pain, pleuritic in nature. Associated with fevers and sweats. Initial CT angiogram was concerning for pulmonary emboli (small volume). Repeat CT scan of the thorax was negative for pulmonary emboli. CT findings indicated parenchymal infiltrates involving the right lung associated with pleural effusion on the right side. Attempted thoracentesis, the volume of fluid was too low. He had a bronchoscopy recently. He was on unfractionated heparin with interruption for various procedures. He denies any bleeding. Clinically he is improving with antibiotic therapy support and anticoagulant therapy. He will need to continue anticoagulant therapy. I plan to switch him to low molecular weight heparin twice a day until discharge. Unfractionated heparin will be discontinued. We discussed the risk and benefit of the new oral anticoagulant. He is a and may be able to obtain drugs through the [facility] as benefits of. Alternatively if he cannot afford the new oral anticoagulant he can be switched over to Coumadin. Thrombophilia evaluation was negative for factor V Leiden, prothrombin gene mutation negative. 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 The thrombophilic risk factor attributed to the MTHFR gene mutation is controversial at best. The lupus anticoagulant with confirmatory hexagonal phase test is positive. The antiphospholipid antibody panel was negative. We discussed the thrombophilia evaluation. The lupus anticoagulant is a concern for the etiology of the venous thromboembolic event and further risk in the future. I recommend he continue anticoagulant therapy. He will need follow -up on an outpatient basis. He may follow-up with us or at his [facility] hematology in [place]. His question and his family's questions were answered to their satisfaction. We will continue to follow him during this hospitalization as we transition his low molecular weight heparin to the new oral anticoagulant upon discharge. We will continue to monitor for bleeding. (1) Pulmonary embolism Qualifiers: Chronicity: acute Acute cor pulmonale presence: without acute cor pulmonale
--- NOTE | 2018-01-10 20:04 | P.CONID ---
History of Present Illness Service: Infectious Disease Consult date: 01/10/18 Requesting Physician: Don Le Reason for Consult: Persistent Fevers, Pneumonia Primary Care Provider: UNKNOWN Chief Complaint: Right sided chest pain, fevers, night sweats. PMF - History History Provided By: Patient - Medical History Medical History: Medical History (Last Updated 01/02/18 @ 18:14 by Jonny White MD) Back pain No significant past medical history - Surgical History Surgical History: Surgical History (Last Reviewed 01/02/18 @ 18:14 by Jonny White MD) No history of previous surgery - Family History Family History: Family History (Last Updated 01/02/18 @ 18:15 by Jonny White MD) Father Family history of diabetes mellitus Family history of myocardial infarction Father No problems noted. Grandparent Liver cancer Mother Blood clot in vein Uncle Deep venous thrombosis - Tobacco History Second Hand Smoke Exposure: No Tobacco Use In Past 30 Days: Yes Smoking Status: Smoker, status unknown Tobacco Type: Cigarettes - Alcohol History How Often Do You Have a Drink Containing Alcohol: Never - Substance Use History Substance History: No History of Abuse - Travel History History of Recent Travel: No Recent Travel in the [place] Within the Last 8 Weeks: No Recent Travel Out of the Country Within the Last 8 Weeks: No - Immunization History Tetanus Immunization: >5 Years Hx Influenza Vaccine This Season: No Medications and Allergies Active Medications: Active Medications Acetaminophen (Tylenol) 650 mg PO Q4H PRN PRN Reason: Temp > 100.4 Last Admin: 01/10/18 08:23 Dose: 650 mg Hydrocodone Bitart/Acetaminophen ([place] 5/325) 1 tab PO Q4H PRN PRN Reason: pain 1 to 10 Last Admin: 01/09/18 21:26 Dose: 1 tab Albuterol (Duoneb Neb (Prn)) 1 ampul NEB Q2HR NEB PRN PRN Reason: SHORTNESS OF BREATH/WHEEZING Last Admin: 01/09/18 23:47 Dose: 1 ampul Doxycycline Hyclate (Vibramycin) 100 mg PO Q12HR GLENDA Enoxaparin Sodium (Lovenox Inj) 80 mg SQ Q12HR GLENDA Guaifenesin (Mucinex Er) 600 mg PO BID GLENDA Last Admin: 01/10/18 08:23 Dose: 600 mg Piperacillin/Tazobactam/Dextrose (Zosyn 4.5 Gm Premix) 4.5 gm in 100 mls @ 200 mls/hr IV.SIG Q8H GLENDA Last Infusion: 01/10/18 14:10 Dose: Infused Vancomycin HCl 1,800 mg/ (Sodium Chloride) 518 mls @ 250 mls/hr IV.SIG Q8H GLENDA Last Admin: 01/10/18 18:19 Dose: 250 mls/hr Sodium Chloride (Ns Inj) 500 mls @ 30 mls/hr IV.SIG .Q10H GLENDA Morphine Sulfate (Morphine Inj) 4 mg IV.PUSH Q4H PRN PRN Reason: BREAKTHROUGH PAIN Last Admin: 01/05/18 03:11 Dose: 4 mg Ondansetron HCl (Zofran Inj) 4 mg IV.PUSH Q6H PRN PRN Reason: NAUSEA OR VOMITING Last Admin: 01/04/18 19:03 Dose: 4 mg Pharmacy Profile Note (Vancomycin Consult Pharmacy) 1 each OTHER UNSCH PRN PRN Reason: Pharmacy to dose Allergies Allergy/AdvReac Type Severity Reaction Status Date / Time No Known Allergies Allergy Verified 01/01/18 21:37 Home Medications Medication Instructions Recorded Confirmed Type No Known Home Medications 01/01/18 01/02/18 History Exam Vital signs: Vital Signs 01/09/18 21:05 01/09/18 23:45 01/10/18 00:00 Temperature 100.1 F H Pulse Rate 108 H 108 H Respiratory Rate 20 16 Blood Pressure 124/60 Pulse Oximetry 93 L 95 01/10/18 04:00 01/10/18 08:00 01/10/18 08:05 Temperature 100.6 F H 100.7 F H Pulse Rate 108 H 113 H Respiratory Rate 18 22 Blood Pressure 121/66 119/56 L Pulse Oximetry 97 96 95 01/10/18 10:30 01/10/18 10:53 01/10/18 12:00 Temperature 99.3 F 100.7 F H Pulse Rate 101 H 124 H Respiratory Rate 20 22 Blood Pressure 125/73 140/78 Pulse Oximetry 94 L 94 L 92 L 01/10/18 13:00 01/10/18 13:19 01/10/18 16:00 Temperature 100.7 F H 99.4 F 97.5 F L Pulse Rate 121 H 113 H 100 H Respiratory Rate 20 20 20 Blood Pressure 100/67 111/55 L 125/69 Pulse Oximetry 93 L 95 96 Intake & Output 01/10/18 01/10/18 01/11/18 06:59 18:59 06:59 Intake Total 1536 / 1536 1665 / 1665 Output Total 1200 / 1200 2200 / 2200 Balance 336 / 336 -535 / -535 Weight 123.2 kg Intake: IV 1386 / 1386 1225 / 1225 D5W/1/2 NS Inj 1,000 ML @ 30 50 / 50 mls/hr IV.CONT .Q24H GLENDA Rx#: [id number] Heparin/D5W 25,000 U/250 mL 25, 250 / 250 215 / 215 000 unit In 250 ml @ Per Protocol IV.CONT TITRATE PRN Rx #:[id number] LR 1000 mL Inj 1,000 ML @ 30 200 / 200 mls/hr IV.SIG .Q24H GLENDA Rx#: [id number] Zosyn 4.5 GM Premix 4.5 gm In 100 / 100 200 / 200 100 ml @ 200 mls/hr IV.SIG Q8H GLENDA Rx#:[id number] Vancomycin Inj 1,800 MG In NS 1036 / 1036 560 / 560 Inj 500 ML @ 250 mls/hr IV.SIG Q8H GLENDA Rx#:[id number] Oral 150 / 150 240 / 240 Anesthesia Amount 200 / 200 Output: Urine 1200 / 1200 2200 / 2200 Results - Labs CBC & Chem 7: 01/10/18 11:15 01/10/18 07:20 Labs: Laboratory Results - last 24 hr 01/10/18 01/10/18 01/10/18 07:20 07:20 11:15 CBC w Diff Auto diff final WBC 15.6 H 15.9 H RBC 4.51 4.34 L Hgb 12.7 L 12.6 L Hct 38.9 L 37.5 L MCV 86.2 86.2 MCH 28.3 29.0 MCHC 32.8 33.6 RDW 13.6 13.5 Plt Count 405 386 MPV 7.6 7.7 Neut % (Auto) 76.4 H Lymph % (Auto) 12.4 [place] % (Auto) 9.4 H Eos % (Auto) 1.1 Baso % (Auto) 0.7 Neut # (Auto) 11.9 H Lymph # (Auto) 1.9 [place] # (Auto) 1.5 H Eos # (Auto) 0.2 Baso # (Auto) 0.1 WBC Differential . Differential Comment . PT INR APTT Creatinine 0.94 Estimated GFR Greater than 89 Vancomycin Trough 01/10/18 01/10/18 01/10/18 11:15 18:00 18:00 CBC w Diff WBC RBC Hgb Hct MCV MCH MCHC RDW Plt Count MPV Neut % (Auto) Lymph % (Auto) [place] % (Auto) Eos % (Auto) Baso % (Auto) Neut # (Auto) Lymph # (Auto) [place] # (Auto) Eos # (Auto) Baso # (Auto) WBC Differential Differential Comment PT 22.7 H D INR 2.2 APTT 23.6 D 45.3 H D Creatinine Estimated GFR Vancomycin Trough 10.0 - Imaging Impressions Chest X-Ray 01/10/18 11:43 CONCLUSION: Dense right upper lobe consolidation not present previously, otherwise not significantly changed. Assessment and Plan (1) Pulmonary embolism Status: Acute Code(s): I26.99 - Other pulmonary embolism without acute cor pulmonale (2) Pneumonia Status: Acute Code(s): J18.9 - Pneumonia, unspecified organism (3) Pleural effusion associated with pulmonary infection Status: Acute Code(s): J18.9 - Pneumonia, unspecified organism; J91.8 - Pleural effusion in other conditions classified elsewhere (4) Atelectasis Status: Acute Code(s): J98.11 - Atelectasis - Plan Follow Bronchoscopic cultures closely Continue IV Vancomycin Continue Zosyn Stop Azithromycin Start Doxy 100 mg po bid Check Serum IgG (1) Pulmonary embolism Qualifiers: Chronicity: acute Acute cor pulmonale presence: without acute cor pulmonale
[2018-01-10] MEDS: Enoxaparin Inj 80 MG/0.8 ML Syringe SQ SCH (20:24)
[2018-01-11] MEDS: Vancomycin Inj 1,900 MG in Sodium Chlor 0.9% Inj 500 ML IV.SIG SCH ×3 (01:49→17:33)
[2018-01-11] MEDS: Piperacil/Tazo 4.5 GM Premix 4.5 GM/100 ML BAG IV.SIG SCH ×3 (04:18→19:56)
[2018-01-11] MEDS: Enoxaparin Inj 80 MG/0.8 ML Syringe SQ SCH ×3 (09:07→22:12)
[2018-01-11] MEDS: guaiFENesin 600 MG ER Tablet PO SCH ×3 (09:07→22:18)
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
[2018-01-11] MEDS ORDERED: Esmolol Bolus Inj 100 MG/10 ML Vial IV.PUSH ONE (11:30)
[2018-01-11] MEDS ORDERED: Lidocaine PF 1% Inj 5 ML Syringe INFILTRATN ONE (11:30)
--- NOTE | 2018-01-11 18:32 | P.PN ---
Subjective Interval history: Has improved . No fever. Off o2 and sats 96. Culture from bronch pending Physical Exam Vital signs: Vital Signs 01/10/18 20:00 01/10/18 20:05 01/11/18 00:00 Temperature 98.7 F 96.5 F L Pulse Rate 106 H 95 H Respiratory Rate 18 18 Blood Pressure 114/67 107/83 Pulse Oximetry 95 94 L 95 01/11/18 08:00 01/11/18 09:24 01/11/18 16:20 Temperature 96.5 F L Pulse Rate 92 H Respiratory Rate 18 Blood Pressure 133/82 Pulse Oximetry 97 93 L 96 Intake & Output 01/10/18 01/11/18 01/11/18 18:59 06:59 18:59 Intake Total 1665 / 1665 1429 / 1429 665 / 665 Output Total 2200 / 2200 1400 / 1400 775 / 775 Balance -535 / -535 29 / 29 -110 / -110 Weight 119.4 kg Intake: IV 1225 / 1225 1279 / 1279 665 / 665 D5W/1/2 NS Inj 1,000 ML @ 30 50 / 50 mls/hr IV.CONT .Q24H GLENDA Rx#: [id number] Heparin/D5W 25,000 U/250 mL 25, 215 / 215 000 unit In 250 ml @ Per Protocol IV.CONT TITRATE PRN Rx #:[id number] LR 1000 mL Inj 1,000 ML @ 30 200 / 200 mls/hr IV.SIG .Q24H GLENDA Rx#: [id number] Zosyn 4.5 GM Premix 4.5 gm In 200 / 200 200 / 200 100 / 100 100 ml @ 200 mls/hr IV.SIG Q8H GLENDA Rx#:[id number] Vancomycin Inj 1,900 MG In NS 560 / 560 1079 / 1079 565 / 565 Inj 500 ML @ 250 mls/hr IV.SIG Q8H GLENDA Rx#:[id number] Oral 240 / 240 150 / 150 Anesthesia Amount 200 / 200 Output: Urine 2200 / 2200 1400 / 1400 775 / 775 Other: # Voids 2 Narrative: GENERAL: Well-developed, well-nourished, in no acute distress. HEENT: Head is normocephalic without any lesions or masses noted. Facial features are symmetric. Eyes: Extraocular muscles are intact. Conjunctivae were clear. NECK: Supple without any masses. Trachea midline no deviation. No JVD, CARDIAC: Regular rhythm, regular rate. S1/S2 are heard. No murmurs gallops or rubs. LUNGS: Clear to auscultation bilaterally. No wheeze, rhonchi or rales. No use of accessory muscles on inspiration or expiration. ABDOMEN: Soft, nontender. Nondistended. Bowel sounds heard in all 4 quadrants. No organomegaly or masses. Negative rebound, negative guarding EXTREMITIES: No edema, pulses are equal bilaterally. No cyanosis or clubbing NEUROLOGY: Mood and affect appear appropriate. Cranial nerves II through XII grossly intact. Moving all extremities, speech is clear Results - Labs CBC & Chem 7: 01/10/18 11:15 01/10/18 07:20 Laboratory Results - last 24 hr 01/10/18 18:00 Vancomycin Trough 10.0 Microbiology 01/10/18 12:45 Bronchial Brushings - Right Lower Lobe Fungal Smear - Final 01/10/18 12:45 Bronchial - Bronchial Gram Stain - Final 01/10/18 12:45 Bronchial - Bronchial Bronchial Culture - Preliminary Moderate growth normal respiratory sourav at 24 hours 01/10/18 12:45 Bronchial Brushings - Right Lower Lobe Bronchial [place] Culture - Preliminary No growth in 24 hours 01/10/18 12:45 Bronchial Washings - Bronchial Fungal Smear - Final No fungal elements seen Assessment and Plan - Assessment (1) Pneumonia Code(s): J18.9 - Pneumonia, unspecified organism Status: Acute (2) Pleural effusion associated with pulmonary infection Code(s): J18.9 - Pneumonia, unspecified organism; J91.8 - Pleural effusion in other conditions classified elsewhere Status: Acute (3) Atelectasis Code(s): J98.11 - Atelectasis Status: Acute (4) Pulmonary embolism Code(s): I26.99 - Other pulmonary embolism without acute cor pulmonale Status : Acute - Plan 1. Continue Antibiotic Zosyn/Vancomycin/ Doxycycline 2. O2 2 L N/C prn. 3. Will Rpt CXR in am 4. Nebs qid , duoneb 5. Po anticoagulants per Hematology 6. IS at Bedside Q2H 7. Home per Dr López if cleared by ID 8.Ventolin HFA , 2 puffs qid prn (4) Pulmonary embolism Qualifiers: Chronicity: acute Acute cor pulmonale presence: without acute cor pulmonale
--- NOTE | 2018-01-11 19:55 | P.PNID ---
Subjective Remarks: PT SITTING UP AT THE BEDSIDE NO FEVER FEELS BETTER TODAY SPOKE TO HIM ABOUT HIV HE IS TEARFUL BUT AGREES DENIES ANY RISK FACTOR Antibiotics: ZOSYN VANCOMYCIN DOXYCYLINE Allergies/Adverse Reactions: Allergies No Known Allergies Allergy (Verified 01/01/18 21:37) Objective Vital Signs 01/10/18 20:00 01/10/18 20:05 01/11/18 00:00 Temperature 98.7 F 96.5 F L Pulse Rate 106 H 95 H Respiratory Rate 18 18 Blood Pressure 114/67 107/83 Pulse Oximetry 95 94 L 95 01/11/18 08:00 01/11/18 09:24 01/11/18 16:00 Temperature 96.5 F L Pulse Rate 92 H Respiratory Rate 18 Blood Pressure 133/82 Pulse Oximetry 97 93 L 95 01/11/18 16:20 Temperature Pulse Rate Respiratory Rate Blood Pressure Pulse Oximetry 96 Intake & Output 01/11/18 01/11/18 01/12/18 06:59 18:59 06:59 Intake Total 1429 / 1429 665 / 665 386 / 386 Output Total 1400 / 1400 775 / 775 Balance -110 / -110 386 / 386 Weight 119.4 kg Intake: IV 1279 / 1279 665 / 665 386 / 386 Zosyn 4.5 GM Premix 4.5 gm In 200 / 200 100 / 100 100 ml @ 200 mls/hr IV.SIG Q8H GLENDA Rx#:[id number] Vancomycin Inj 1,900 MG In NS 1079 / 1079 565 / 565 386 / 386 Inj 500 ML @ 250 mls/hr IV.SIG Q8H GLENDA Rx#:[id number] Oral 150 / 150 Output: Urine 1400 / 1400 775 / 775 Other: # Voids 2 01/10/18 12:45 Bronchial Brushings - Right Lower Lobe Fungal Smear - Final 01/10/18 12:45 Bronchial Brushings - Right Lower Lobe Fungal Culture - Pending 01/10/18 12:45 Bronchial - Bronchial Gram Stain - Final 01/10/18 12:45 Bronchial - Bronchial Bronchial Culture - Preliminary Moderate growth normal respiratory sourav at 24 hours 01/10/18 12:45 Bronchial Brushings - Right Lower Lobe Bronchial [place] Culture - Preliminary No growth in 24 hours 01/10/18 12:45 Bronchial Washings - Bronchial Fungal Smear - Final No fungal elements seen 01/10/18 12:45 Bronchial Washings - Bronchial Fungal Culture - Pending 01/10/18 12:45 Bronchial Brushings - Right Lower Lobe Acid Fast Bacilli Smear - Pending 01/10/18 12:45 Bronchial Brushings - Right Lower Lobe Mycobacterial Culture - Pending 01/10/18 12:45 Bronchial Washings - Bronchial Acid Fast Bacilli Smear - Pending 01/10/18 12:45 Bronchial Washings - Bronchial Mycobacterial Culture - Pending Lab - Hematology Results 01/10/18 01/10/18 07:20 11:15 CBC w Diff Auto diff final WBC 15.6 H 15.9 H RBC 4.51 4.34 L Hgb 12.7 L 12.6 L Hct 38.9 L 37.5 L MCV 86.2 86.2 MCH 28.3 29.0 MCHC 32.8 33.6 RDW 13.6 13.5 Plt Count 405 386 MPV 7.6 7.7 Neut % (Auto) 76.4 H Lymph % (Auto) 12.4 [place] % (Auto) 9.4 H Eos % (Auto) 1.1 Baso % (Auto) 0.7 Neut # (Auto) 11.9 H Lymph # (Auto) 1.9 [place] # (Auto) 1.5 H Eos # (Auto) 0.2 Baso # (Auto) 0.1 WBC Differential . Differential Comment . Lab - Chemistry Results 01/10/18 07:20 Creatinine 0.94 Estimated GFR Greater than 89 Imaging: ITS Impressions Chest CTA 01/02/18 00:00 CONCLUSION: 1. No reproducible pulmonary emboli. 2. Persistent left lower lobe consolidation and small left pleural effusion. 3. Mild right base atelectasis not significantly changed. 4. Mildly enlarged mediastinal and right hilar lymph nodes not significantly changed. Venous Doppler Study 01/02/18 00:00 CONCLUSION: 1. Negative for deep venous thrombosis CT Consultation 01/04/18 00:00 CONCLUSION: 1. The patient's effusion has significantly improved compared to the prior study of 01/02/2018. There is now only a small amount of fluid which remains. As such, no chest tube was placed. 2. There is still extensive consolidation and atelectasis within the right lung. Chest X-Ray 01/10/18 11:43 CONCLUSION: Dense right upper lobe consolidation not present previously, otherwise not significantly changed. Physical Exam: AWAKE OX 3 PERRL NS CHEST : CTA RRR ABDOMEN: SOFT ACTIVE EXT: NO EDEMA Assessment and Plan (1) Pleural effusion associated with pulmonary infection Status: Acute Code(s): J18.9 - Pneumonia, unspecified organism; J91.8 - Pleural effusion in other conditions classified elsewhere (2) Pneumonia Status: Acute Code(s): J18.9 - Pneumonia, unspecified organism (3) Pulmonary embolism Status: Acute Code(s): I26.99 - Other pulmonary embolism without acute cor pulmonale - Plan Follow Bronchoscopic cultures closely Continue IV Vancomycin Continue Zosyn Cont Doxy 100 mg po bid Check Serum IgG fu pt agrees for hiv screening (3) Pulmonary embolism Qualifiers: Chronicity: acute Acute cor pulmonale presence: without acute cor pulmonale
[2018-01-11 20:53] VITALS: RESP 20
[2018-01-12] MEDS: Vancomycin Inj 1,900 MG in Sodium Chlor 0.9% Inj 500 ML IV.SIG SCH ×2 (01:30→11:06)
[2018-01-12] MEDS ORDERED: VANCOMYCIN TROUGH OTHER ONE (01:45)
[2018-01-12] MEDS: Piperacil/Tazo 4.5 GM Premix 4.5 GM/100 ML BAG IV.SIG SCH (04:09)
--- NOTE | 2018-01-12 06:26 | XR ---
EXAM DATE: 01/12/2018 6:16 AM EST AGE/SEX: 22 years / Male INDICATIONS: Short of breath. CLINICAL DATA: This is the patient's subsequent encounter. Patient reports that signs and symptoms h ave been present for 1 week and indicates a pain score of 0/10. MEDICAL/SURGICAL HISTORY: None. None. COMPARISON: [facility], CTA PULMONARY W CONTRAST W 3D, 01/02/2018. . FINDINGS: With parenchymal consolidation is again noted on the right, configuration grossly unchanged. Left justin g remains clear. Visualized cardiac contours are stable CONCLUSION: No significant change Electronically signed by: Brock Ordonez MD 01/12/2018 6:25 AM EST
[2018-01-12 06:30] LABS: Glomerular Filtration Rate Greater Than 89 mL/min (>89)
[2018-01-12] MEDS: Enoxaparin Inj 80 MG/0.8 ML Syringe SQ SCH (08:19)
[2018-01-12] MEDS: guaiFENesin 600 MG ER Tablet PO SCH (08:20)
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
[2018-01-12 12:52] VITALS: BP 111/57; PULSE 91; TEMP 97.7; O2SAT 96
== END 2018-01-12 14:06 | disposition home or self-care (01) ==
LOC: PHEDDLT 21:25 → PH3 01-02 02:20
PROVIDERS: ADMIT Hospitalist; ATTEND Hospitalist